=== PATIENT | male | born 1965 | race American Indian/Alaskan Native ===

== ENCOUNTER 2016-07-25 08:39 | Emergency (ER) | payer MEDICAID ==
[2016-07-25 09:07] VITALS: BP 159/123
[2016-07-25 10:06] LABS: Basophils % (Auto) 1.2 % (0.0-1.8); Eosinophils % (Auto) 2.8 % (0.0-4.3); Hematocrit 40.1 % (35.5-45.6); Hemoglobin 13.2 gm/dl (11.8-15.2); Mean Corpuscular HGB Conc 33 % (32-34); Mean Corpuscular Hemoglobin 29 pg (28-32); Mean Corpuscular Volume 89 fl (84-94); Platelet Count 191 K/mm3 (140-440); Red Blood Count 4.52 M/mm3 (3.65-5.03); Red Cell Distribution Width 14.8 % (13.2-15.2); White Blood Count 9.2 K/mm3 (4.5-11.0)
[2016-07-25 10:13] LABS: Anion Gap 16 mmol/L; Blood Urea Nitrogen 9 mg/dL (9-20); Calcium 8.8 mg/dL (8.4-10.2); Carbon Dioxide 22 mmol/L (22-30); Chloride 104.6 mmol/L (98-107); Glucose 102 mg/dL (75-100); Potassium 3.7 mmol/L (3.6-5.0); Sodium 139 mmol/L (137-145)
--- NOTE | 2016-07-26 00:44 | ED Elopement Review ---
ED Pt Elopement review - Results review Lab results: Laboratory Tests 07/25/16 07/25/16 09:34 09:34 WBC 9.2 RBC 4.52 Hgb 13.2 Hct 40.1 MCV 89 MCH 29 MCHC 33 RDW 14.8 Plt Count 191 Lymph % (Auto) 15.8 [place] % (Auto) 7.1 Eos % (Auto) 2.8 Baso % (Auto) 1.2 Lymph # 1.5 [place] # 0.7 Eos # 0.3 Baso # 0.1 Seg Neutrophils % 73.1 H Seg Neutrophils # 6.7 Sodium 139 Potassium 3.7 Chloride 104.6 Carbon Dioxide 22 Anion Gap 16 BUN 9 Creatinine 1.0 Estimated GFR > 60 BUN/Creatinine Ratio 9.00 Glucose 102 H Calcium 8.8 - Call Back decision Pt Call Back Decision: Pt to F/U with PMD (elevated bp, needs treatment and reevaluation)
== END 2016-07-25 09:37 | disposition left against medical advice (07) ==
LOC: ED 08:39
DX: R05 Cough (principal); R51 Headache; R50.9 Fever, unspecified; Z53.21 Procedure and treatment not carried out due to patient leaving prior to being seen by health care provider
CPT/HCPCS: 36415; 80048; 85025; 93005; 93010

== ENCOUNTER 2017-04-26 16:08 | Emergency (ER) | payer MEDICAID ==
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
[2017-04-26 16:53] LABS: Urine Drugs of Abuse Note Disclamer
[2017-04-26 16:58] LABS: Basophils % (Auto) 0.4 % (0.0-1.8); Eosinophils % (Auto) 2.4 % (0.0-4.3); Hematocrit 41.5 % (35.5-45.6); Hemoglobin 13.9 gm/dl (11.8-15.2); Mean Corpuscular HGB Conc 34 % (32-34); Mean Corpuscular Hemoglobin 30 pg (28-32); Mean Corpuscular Volume 91 fl (84-94); Platelet Count 180 K/mm3 (140-440); Red Blood Count 4.59 M/mm3 (3.65-5.03); Red Cell Distribution Width 15.8 % (13.2-15.2); White Blood Count 6.6 K/mm3 (4.5-11.0)
[2017-04-26 17:09] LABS: Anion Gap 16 mmol/L; BUN/Creatinine Ratio 15; Blood Urea Nitrogen 16 mg/dL (9-20); Calcium 8.7 mg/dL (8.4-10.2); Carbon Dioxide 30 mmol/L (22-30); Chloride 103.4 mmol/L (98-107); Glucose 98 mg/dL (75-100); Potassium 4.2 mmol/L (3.6-5.0); Sodium 145 mmol/L (137-145)
[2017-04-26] MEDS ORDERED: TYLENOL PO ONE (17:49)
[2017-04-26] MEDS ORDERED: LASIX IV ONE (17:50)
[2017-04-26] MEDS ORDERED: TYLENOL ONE (17:50)
[2017-04-26 19:09] VITALS: BP 124/97
--- NOTE | 2017-04-26 21:12 | XRay Report ---
FINAL REPORT PROCEDURE: XR CHEST 1V AP TECHNIQUE: Chest radiograph anteroposterior view. CPT 55442 HISTORY: Shortness of breath COMPARISON: No prior studies are available for comparison. FINDINGS: Heart: Magnified due to projection although appears to be mildly enlarged.. Mediastinum/Vessels: Normal. Lungs/Pleural space: Normal. Bony thorax: No acute osseous abnormality. Life support devices: None. IMPRESSION: Cardiomegaly. No acute abnormalities are identified..
== END 2017-04-26 19:08 | disposition home or self-care (01) ==
LOC: ED 16:08
DX: I50.9 Heart failure, unspecified (principal); R06.02 Shortness of breath; I10 Essential (primary) hypertension; I25.2 Old myocardial infarction; K21.9 Gastro-esophageal reflux disease without esophagitis; F17.200 Nicotine dependence, unspecified, uncomplicated
CPT/HCPCS: 36415; 71010; 80048; 80307; 83880; 84484; 85025; 93005; 93010; 96374; 99285; J1940

== ENCOUNTER 2017-05-04 10:48 | Emergency (ER) | payer MEDICAID ==
[2017-05-04 11:08] VITALS: BP 148/117
--- NOTE | 2017-05-04 12:04 | XRay Report ---
PA and lateral chest: SOB. The heart is big. There is mild vascular congestion. No effusion and no infiltrate. The vascular congestion may be slightly worsened seen on prior exam of April 26, 2017. Impression: Probable mild CHF pattern.
[2017-05-04 12:13] LABS: Basophils % (Auto) 0.4 % (0.0-1.8); Eosinophils # (Auto) 0.1 K/mm3 (0.0-0.4); Eosinophils % (Auto) 1.8 % (0.0-4.3); Hematocrit 41.7 % (35.5-45.6); Hemoglobin 13.5 gm/dl (11.8-15.2); Lymphocytes # (Auto) 1.8 K/mm3 (1.2-5.4); Lymphocytes % (Auto) 32.6 % (13.4-35.0); Mean Corpuscular HGB Conc 32 % (32-34); Mean Corpuscular Hemoglobin 29 pg (28-32); Mean Corpuscular Volume 90 fl (84-94); Monocytes # (Auto) 0.7 K/mm3 (0.0-0.8); Monocytes % (Auto) 13.1 % (0.0-7.3); Platelet Count 181 K/mm3 (140-440); Red Blood Count 4.65 M/mm3 (3.65-5.03); Red Cell Distribution Width 15.9 % (13.2-15.2)
[2017-05-04 12:21] LABS: INR 0.87 (0.87-1.13)
[2017-05-04 12:26] LABS: Creatine Kinase MB 3.7 ng/mL (0.0-4.0)
[2017-05-04 12:30] LABS: BUN/Creatinine Ratio 14; Blood Urea Nitrogen 15 mg/dL (9-20); Calcium 8.7 mg/dL (8.4-10.2); Hemolysis Index 17
== END 2017-05-04 14:15 | disposition left against medical advice (07) ==
LOC: ED 10:48
DX: R07.9 Chest pain, unspecified (principal); Z53.21 Procedure and treatment not carried out due to patient leaving prior to being seen by health care provider
CPT/HCPCS: 36415; 71046; 80048; 82550; 82553; 83880; 84484; 85025; 85610; 93005; 93010

== ENCOUNTER 2017-11-16 10:11 | Inpatient (IN) | payer MEDICAID ==
[2017-11-16 11:02] LABS: Basophils # (Auto) 0.1 K/mm3 (0.0-0.1); Basophils % (Auto) 0.8 % (0.0-1.8); Eosinophils % (Auto) 0.2 % (0.0-4.3); Hematocrit 47.8 % (35.5-45.6); Hemoglobin 16.4 gm/dl (11.8-15.2); Lymphocytes # (Auto) 1.9 K/mm3 (1.2-5.4); Lymphocytes % (Auto) 17.9 % (13.4-35.0); Mean Corpuscular HGB Conc 34 % (32-34); Mean Corpuscular Hemoglobin 31 pg (28-32); Mean Corpuscular Volume 91 fl (84-94); Monocytes # (Auto) 0.7 K/mm3 (0.0-0.8); Monocytes % (Auto) 6.1 % (0.0-7.3); Platelet Count 260 K/mm3 (140-440); Red Blood Count 5.25 M/mm3 (3.65-5.03); Red Cell Distribution Width 15.4 % (13.2-15.2)
[2017-11-16 11:19] LABS: Albumin 4.2 g/dL (3.9-5); Calcium 9.2 mg/dL (8.4-10.2)
[2017-11-16] MEDS ORDERED: ZOFRAN ONE (14:59)
[2017-11-16] MEDS ORDERED: ZOFRAN IV ONE (15:03)
[2017-11-16] MEDS ORDERED: NACL 0.9% 1000 ML 1,000 ML IV ONE (15:07)
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
--- NOTE | 2017-11-16 17:39 | Cat Scan Report ---
FINAL REPORT PROCEDURE: CT ABDOMEN PELVIS WO CON TECHNIQUE: Computerized axial tomography of the abdomen and pelvis was performed without intravenous contrast. This study is performed without intravascular contrast material and its sensitivity for abdominal and pelvic pathology, including neoplasms, inflammation, abscess, free fluid, thrombosis, arterial dissection and infarction, is reduced compared with a contrast enhanced study. DLP 1783.26 mGy-cm. HISTORY: Abdominal pain. Nausea/vomiting. COMPARISON: No prior studies are available for comparison. FINDINGS: Visualized lower thorax: Mild cardiomegaly. Liver: Normal size and attenuation. Spleen: Normal size and attenuation. Gallbladder and biliary system: Normal. Pancreas: Normal. Adrenals: Bilateral thickened somewhat nodular appearing adrenal glands. Adreniform shape relatively maintained.. Kidneys: Normal. GI tract: Moderately distended duodenum and jejunum, with gradual tapering to more normal caliber ileum. Normal caliber air-filled appendix. Thick-walled short segment distal transverse colon wall thickening measuring 11 mm (image 69 series 2, image 41 series 602). Descending and more distal colon decompressed. Scattered colonic diverticula. Lymph nodes and mesentery: Normal. Vasculature: Normal. Bladder: Normal. Reproductive organs: Small prostatic calcifications. Peritoneum: No free fluid. Musculoskeletal structures: Slight L4-5 and mild L5-S1 disc bulges. L4-5 ligamentum flavum thickening. Tiny multilevel osteophytes. L5-S1 disc space narrowing and vacuum disc change. Probably benign cystic and/or fibrous lesion in the left iliac wing measuring 2.8 x 1.6 cm. Mild narrowing, osteophytes, and small subchondral cysts about the right hip joint. Other: Small fat filled umbilical hernia. Right greater than left fat filled inguinal hernias. IMPRESSION: Mild cardiomegaly. No CT evidence of renal/ureteral stone or obstruction. Bilateral thickened somewhat nodular appearing adrenal glands with relatively maintained adreniform shape. Consider adrenal hyperplasia. Distended duodenum and jejunum, with gradual tapering. Findings more likely represent an ileus or enteritis rather than obstruction, consider attention on followup radiographs if there is continued clinical concern. Short segment of distal transverse colonic wall thickening and narrowing, likely peristalsis but consider further evaluation including colonoscopy if there is concern for subtle annular colonic lesion. Diverticulosis. Small fat filled umbilical and right greater than left inguinal hernias. Other incidental findings as above.
[2017-11-16 18:31] LABS: Bilirubin,Urine NEG (Negative); Blood,Urine NEG (Negative); Color,Urine Yellow (Yellow); Mucus,Urine FEW /HPF
[2017-11-16] MEDS ORDERED: MORPHINE IV ONE (18:57)
[2017-11-16] MEDS ORDERED: MORPHINE ONE (19:22)
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
[2017-11-16] MEDS ORDERED: SODIUM CHLORIDE FLUSH SYRINGE 10 ML IV PRN (21:04)
[2017-11-16] MEDS ORDERED: PHENERGAN PR PRN (21:04)
[2017-11-16] MEDS ORDERED: ZOFRAN IV PRN (21:04)
[2017-11-16] MEDS ORDERED: REGLAN IV PRN ×2 (21:04→21:24)
[2017-11-16] MEDS ORDERED: TYLENOL PO PRN (21:04)
[2017-11-16] MEDS ORDERED: PEPCID IV SCH (22:00)
[2017-11-16] MEDS: D5NS 1,000 ML IV SCH (23:05)
[2017-11-16] MEDS: SODIUM CHLORIDE FLUSH SYRINGE 10 ML IV SCH (23:11)
[2017-11-16] MEDS: PROTONIX IV SCH (23:11)
[2017-11-16] MEDS: MORPHINE IV PRN (23:12)
[2017-11-17] MEDS: D5NS 1,000 ML IV SCH ×2 (06:25→22:47)
[2017-11-17] MEDS: MORPHINE IV PRN (06:25)
[2017-11-17 07:41] LABS: Basophils % (Auto) 0.3 % (0.0-1.8); Eosinophils % (Auto) 0.3 % (0.0-4.3); Hematocrit 43.6 % (35.5-45.6); Hemoglobin 14.5 gm/dl (11.8-15.2); Lymphocytes # (Auto) 1.5 K/mm3 (1.2-5.4); Lymphocytes % (Auto) 18.4 % (13.4-35.0); Mean Corpuscular HGB Conc 33 % (32-34); Mean Corpuscular Hemoglobin 31 pg (28-32); Mean Corpuscular Volume 92 fl (84-94); Monocytes # (Auto) 0.8 K/mm3 (0.0-0.8); Monocytes % (Auto) 9.1 % (0.0-7.3); Platelet Count 205 K/mm3 (140-440); Red Blood Count 4.75 M/mm3 (3.65-5.03)
[2017-11-17 08:12] LABS: Albumin 3.7 g/dL (3.9-5); Calcium 8.4 mg/dL (8.4-10.2)
--- NOTE | 2017-11-17 09:15 | XRay Report ---
AP ABDOMEN: HISTORY: Ileus. The abdominal gas pattern is unremarkable. No masses or organomegaly is identified and there is no gross evidence of free air or fluid. No significant soft tissue calcifications are noted. IMPRESSION: Unremarkable abdomen.
[2017-11-17] MEDS: SODIUM CHLORIDE FLUSH SYRINGE 10 ML IV SCH ×2 (09:25→22:30)
--- NOTE | 2017-11-17 12:17 | Consultation ---
History of Present Illness Consult date: 11/17/17 Consult reason: arrhythmia History of present illness: 51-year-old man with a long history of dilated nonischemic cardiomyopathy. A cardiac catheterization several years ago at [facility] demonstrated the absence of coronary artery disease. His latest echocardiogram documents a severe left ventricular dysfunction, ejection fraction 15-20%. Stress thallium test showed no ischemia. He has been on medical therapy for systolic left ventricle dysfunction and undergoing ICD evaluation as an outpatient. He presents to the hospital nausea, vomiting, abdominal pain, admitted with acute renal failure and dehydration. Creatinine of 3.9 on presentation. This morning, while on telemetry monitoring patient noted a short burst of non- sustained ventricular tachycardia. Cardiac consultation was requested. Patient remained asymptomatic. There were no unusual shortness of breath, or chest pain. He denies palpitations. 12 lead ECG is a sinus rhythm, LVH with repolarization abnormalities. Medications and Allergies Allergies Allergy/AdvReac Type Severity Reaction Status Date / Time No Known Allergies Allergy Verified 04/26/17 16:12 Home Medications Medication Instructions Recorded Confirmed Last Taken Type ALBUTEROL Inhaler [ProAir HFA 1 - 2 puff IH Q4-6H PRN #1 inha 02/03/17 09/27/17 Unknown Rx Inhaler] Lisinopril [Zestril TAB] 20 mg PO QDAY #30 tablet 02/03/17 09/27/17 09/25/17 Rx Carvedilol [Coreg] 12.5 mg PO BID 09/27/17 09/27/17 09/25/17 History Pantoprazole [Protonix TAB] 40 mg PO QDAY 09/27/17 09/27/17 09/25/17 History Potassium Chloride [K-Dur] 10 meq PO QDAY 09/27/17 09/27/17 09/25/17 History Aspirin [Aspirin TAB] 325 mg PO QDAY #30 tablet 09/28/17 Unknown Rx Spironolactone [Aldactone] 25 mg PO QDAY #30 tablet 09/28/17 Unknown Rx Torsemide [Demadex] 20 mg PO DAILY #30 tablet 09/28/17 Unknown Rx Active Meds: Active Medications Acetaminophen (Tylenol) 650 mg PO Q4H PRN PRN Reason: Pain MILD(1-3)/Fever >100.5/MCFADDEN Dextrose/Sodium Chloride (D5ns) 1,000 mls @ 100 mls/hr IV DIRECT [facility] Last Admin: 11/17/17 06:25 Dose: 100 mls/hr Metoclopramide HCl (Reglan) 5 mg IV Q6H PRN PRN Reason: Nausea And Vomiting Morphine Sulfate (Morphine) 2 mg IV Q4H PRN PRN Reason: Pain, Moderate (4-6) Last Admin: 11/17/17 06:25 Dose: 2 mg Ondansetron HCl (Zofran) 4 mg IV Q8H PRN PRN Reason: Nausea And Vomiting Pantoprazole Sodium (Protonix) 40 mg IV BID [facility] Last Admin: 11/16/17 23:11 Dose: 40 mg Promethazine HCl (Phenergan) 25 mg [place] Q6H PRN PRN Reason: N/V IF NPO AND NO IV ACCESS Sodium Chloride (Sodium Chloride Flush Syringe 10 Ml) 10 ml IV BID [facility] Last Admin: 11/16/17 23:11 Dose: 10 ml Sodium Chloride (Sodium Chloride Flush Syringe 10 Ml) 10 ml IV PRN PRN PRN Reason: LINE FLUSH Physical Examination Vital Signs Temp Pulse Resp BP Pulse Ox 97.6 F 69 16 101/66 95 11/16/17 10:26 11/16/17 10:26 11/16/17 10:26 11/16/17 10:26 11/16/17 10:26 General appearance: no acute distress Cardiac: Positive: Reg Rate and Rhythm Neuro: Positive: Grossly Intact Extremities: Absent: edema Results 11/17/17 07:06 11/17/17 07:06 Cardiac Enzymes 11/17/17 Range/Units 07:06 AST 21 (5-40) units/L CBC 11/17/17 Range/Units 07:06 WBC 8.4 (4.5-11.0) K/mm3 RBC 4.75 (3.65-5.03) M/mm3 Hgb 14.5 (11.8-15.2) gm/dl Hct 43.6 (35.5-45.6) % Plt Count 205 (140-440) K/mm3 Lymph # 1.5 (1.2-5.4) K/mm3 [place] # 0.8 (0.0-0.8) K/mm3 Eos # 0.0 (0.0-0.4) K/mm3 Baso # 0.0 (0.0-0.1) K/mm3 Comprehensive Metabolic Panel 11/17/17 Range/Units 07:06 Sodium 142 (137-145) mmol/L Potassium 3.8 (3.6-5.0) mmol/L Chloride 101.9 (98-107) mmol/L Carbon Dioxide 26 (22-30) mmol/L BUN 30 H (9-20) mg/dL Creatinine 2.5 H (0.8-1.5) mg/dL Glucose 109 H (75-100) mg/dL Calcium 8.4 (8.4-10.2) mg/dL AST 21 (5-40) units/L ALT 17 (7-56) units/L Alkaline Phosphatase 65 (35-129) units/L Total Protein 6.5 (6.3-8.2) g/dL Albumin 3.7 L (3.9-5) g/dL Assessment and Plan Acute renal failure Dehydration Dilated nonischemic cardiomyopathy EF 10-15% on echo at [facility] 12/2016 fixed inferior wall defect on MPI at [facility] 12/2016. This is unchanged when compared to prior study. Recommendations: Continue medical therapy for his dilated nonischemic cardiomyopathy. Sodium/fluid restriction. As an outpatient, patient is being considered for elective ICD therapy.
--- NOTE | 2017-11-17 14:45 | Consultation ---
History of Present Illness - Reason for Consult Consult date: 11/17/17 acute renal failure - History of Present Illness Pleasant middle aged male with history pertinent for HTN, CHF, CAD s/p PCI, and HLD, who presented to the hospital secondary to symptoms of reocurent nasuea, vomiting and abdominal discomfort compounded by decreased PO intake. These symptoms had occured for the past 5 days before patient came to the ER for further evaluation. His father had recently . In this setting of decreased PO intake his serum creatinine level was elevated at 3.7 from a baseline of 1.2-1.4. His serum creatinine has already shown improvement down to 2.5 after fluid hydration. Nephrology was consulted for acute renal injury. He denies nay symptoms of pain with urination, hematuria or decreased urination. He states that also this week he had been working outside one day prior to arrival to the ER. During the time that he was working he managed to only drink ~16 floz of gatorade. He apparently was working outside in the heat for ~6 hrs. He states the he was never aware of an elevated creatinine in the past and that he has never been evaluated by nephrology. He is also being managed cardiology along with his PCP as an outpatient. Today he states that he is feeling better and he has been started on a clear liquid diet upon the time of examination. Past History Past Medical History: CAD, hypertension, hyperlipidemia Past Surgical History: Other (eye surgery ) Social history: no significant social history Family history: hypertension Medications and Allergies Allergies Allergy/AdvReac Type Severity Reaction Status Date / Time No Known Allergies Allergy Verified 04/26/17 16:12 Home Medications Medication Instructions Recorded Confirmed Last Taken Type ALBUTEROL Inhaler [ProAir HFA 1 - 2 puff IH Q4-6H PRN #1 inha 02/03/17 09/27/17 Unknown Rx Inhaler] Lisinopril [Zestril TAB] 20 mg PO QDAY #30 tablet 02/03/17 09/27/17 09/25/17 Rx Carvedilol [Coreg] 12.5 mg PO BID 09/27/17 09/27/17 09/25/17 History Pantoprazole [Protonix TAB] 40 mg PO QDAY 09/27/17 09/27/17 09/25/17 History Potassium Chloride [K-Dur] 10 meq PO QDAY 09/27/17 09/27/17 09/25/17 History Aspirin [Aspirin TAB] 325 mg PO QDAY #30 tablet 09/28/17 Unknown Rx Spironolactone [Aldactone] 25 mg PO QDAY #30 tablet 09/28/17 Unknown Rx Torsemide [Demadex] 20 mg PO DAILY #30 tablet 09/28/17 Unknown Rx Active Meds: Active Medications Acetaminophen (Tylenol) 650 mg PO Q4H PRN PRN Reason: Pain MILD(1-3)/Fever >100.5/MCFADDEN Carvedilol (Coreg) 6.25 mg PO BID [facility] Dextrose/Sodium Chloride (D5ns) 1,000 mls @ 100 mls/hr IV DIRECT [facility] Last Admin: 11/17/17 06:25 Dose: 100 mls/hr Metoclopramide HCl (Reglan) 5 mg IV Q6H PRN PRN Reason: Nausea And Vomiting Morphine Sulfate (Morphine) 2 mg IV Q4H PRN PRN Reason: Pain, Moderate (4-6) Last Admin: 11/17/17 06:25 Dose: 2 mg Ondansetron HCl (Zofran) 4 mg IV Q8H PRN PRN Reason: Nausea And Vomiting Pantoprazole Sodium (Protonix) 40 mg IV BID [facility] Stop: 11/17/17 23:59 Last Admin: 11/16/17 23:11 Dose: 40 mg Pantoprazole Sodium (Protonix) 40 mg PO BID [facility] Promethazine HCl (Phenergan) 25 mg [place] Q6H PRN PRN Reason: N/V IF NPO AND NO IV ACCESS Sodium Chloride (Sodium Chloride Flush Syringe 10 Ml) 10 ml IV BID [facility] Last Admin: 11/16/17 23:11 Dose: 10 ml Sodium Chloride (Sodium Chloride Flush Syringe 10 Ml) 10 ml IV PRN PRN PRN Reason: LINE FLUSH Review of Systems All systems: negative Constitutional: fatigue, weakness, poor appetite Gastrointestinal: abdominal pain, nausea, vomiting, excessive gas, dyspepsia/ bloating, early satiety Exam - Vital Signs Vital signs: Vital Signs Temp Pulse Resp BP Pulse Ox 97.6 F 69 16 101/66 95 11/16/17 10:26 11/16/17 10:26 11/16/17 10:26 11/16/17 10:26 11/16/17 10:26 - General Appearance General appearance: well-developed, well-nourished, appears stated age EENT: PERRL, mucous membranes moist Neck: Present: neck supple, trachea midline Respiratory: Clear to Ascultation Heart: regular, normal heart rate, S1S2, no murmurs Gastrointestinal: Present: normal, normoactive bowel sounds Integumentary: no rash, warm and dry Neurologic: no focal deficit, no asterixis, alert and oriented x3 Musculoskeletal: Present: deferred Psychiatric: mood/affect appropriate Results - Lab Results 11/17/17 07:06 11/17/17 07:06 Most recent lab results Calcium 8.4 mg/dL (8.4-10.2) 11/17/17 07:06 Assessment and Plan - Patient Problems (1) Acute on chronic renal failure Current Visit: Yes Status: Acute Plan to address problem: His renal function is improving with fluid hydration. Encourage PO intake as tolerated. Avoid nephrotoxins. Would continue to hold ACei and monitor blood pressure closely. Once he is tolerating PO intake, would favor to discontinue his IV fluids given his cardiac history and h/o CHF. (2) Hypertension with renal disease Current Visit: Yes Status: Acute Plan to address problem: Patient restarted on coreg with ACEi being held. His current blood pressures are stable at present time. Will continue to monitor. (3) CHF (congestive heart failure) Current Visit: No Status: Chronic Qualifiers: Qualified Code(s): I50.9 - Heart failure, unspecified Plan to address problem: Given his history of CHF, please avoid standing IVF once he is able to tolerate PO intake. Patient should already be on a low sodium diet. (4) Acute pancreatitis Current Visit: Yes Status: Acute Qualifiers: Acute pancreatitis complication: unspecified Plan to address problem: Patient is now on clear liquids and agree with advancing diet as tolerated. Would encourage more PO intake and avoid standing IVF given history of CHF.
[2017-11-17] MEDS: PROTONIX IV SCH ×2 (15:00→22:39)
[2017-11-17] MEDS: COREG PO SCH ×2 (16:00→22:38)
--- NOTE | 2017-11-17 16:17 | Progress Note ---
Assessment and Plan Assessment and plan: 52-year-old -[place] male with past medical history significant for cardiomyopathy with EF of 20%, cocaine abuse, hypertension presented to the emergency department complaining of recurrent nausea and vomiting. At presentation patient was dehydrated and creatinine was 3.7. CT abdomen and pelvis showed ileus, that resolved this morning. Acute renal failure, likely due to dehydration - Patient is on IV fluids - Nephrology is following - Creatinine is from 3.7-2.5 - We will monitor closely Nausea and vomiting secondary to ileus - Abdominal x-ray showed ileus resolved - Nausea and vomiting subsided - Patient stated advanced to a full cardiac diet Cardiomyopathy ejection fraction of 20 percent - Patient refused ICD previously - Patient had nonsustained V. tach and cardiology evaluated him and recommended no further cardiac workup - No shortness of breath, will stop the fluid if the patient has any signs of fluid overload Hypertension - Held ACEI because of acute renal failure and continue with Coreg - BP is well-controlled DVT prophylaxis - Heparin GI prophylaxis - On Protonix Disposition - Possible discharge tomorrow if ARF is progressively improving. History Interval history: Patient was seen and evaluated this morning, nausea and vomiting subsided. Patient's complaining generalized weakness. No chest pain. Hospitalist Physical - Physical exam Narrative exam: Not in cardiopulmonary distress. The patient appeared well nourished and normally developed. Vital signs as documented. Head exam is unremarkable. No scleral icterus . Neck is without jugular venous distension, thyromegaly, or carotid bruits. Lungs are clear to auscultation. Cardiac exam reveals regular rate and Rhythm. First and second heart sounds normal. No murmurs, rubs or gallops. Abdominal exam reveals normal bowel sounds, no masses, no organomegaly and no aortic enlargement. Extremities are nonedematous and both femoral and pedal pulses are normal. 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 No focal weakness. - Constitutional Vitals: Temp Pulse Resp BP Pulse Ox 99.5 F 76 20 130/99 99 11/17/17 13:11 11/17/17 13:11 11/17/17 13:11 11/17/17 13:11 11/17/17 13:11 General appearance: Present: no acute distress Results - Labs CBC & Chem 7: 11/17/17 07:06 11/17/17 07:06 Labs: Laboratory Last Values WBC 8.4 K/mm3 (4.5-11.0) 11/17/17 07:06 RBC 4.75 M/mm3 (3.65-5.03) 11/17/17 07:06 Hgb 14.5 gm/dl (11.8-15.2) 11/17/17 07:06 Hct 43.6 % (35.5-45.6) 11/17/17 07:06 MCV 92 fl (84-94) 11/17/17 07:06 MCH 31 pg (28-32) 11/17/17 07:06 MCHC 33 % (32-34) 11/17/17 07:06 RDW 15.0 % (13.2-15.2) 11/17/17 07:06 Plt Count 205 K/mm3 (140-440) 11/17/17 07:06 Lymph % (Auto) 18.4 % (13.4-35.0) 11/17/17 07:06 [place] % (Auto) 9.1 % (0.0-7.3) H 11/17/17 07:06 Eos % (Auto) 0.3 % (0.0-4.3) 11/17/17 07:06 Baso % (Auto) 0.3 % (0.0-1.8) 11/17/17 07:06 Lymph # 1.5 K/mm3 (1.2-5.4) 11/17/17 07:06 [place] # 0.8 K/mm3 (0.0-0.8) 11/17/17 07:06 Eos # 0.0 K/mm3 (0.0-0.4) 11/17/17 07:06 Baso # 0.0 K/mm3 (0.0-0.1) 11/17/17 07:06 Seg Neutrophils % 71.9 % (40.0-70.0) H 11/17/17 07:06 Seg Neutrophils # 6.0 K/mm3 (1.8-7.7) 11/17/17 07:06 Sodium 142 mmol/L (137-145) 11/17/17 07:06 Potassium 3.8 mmol/L (3.6-5.0) 11/17/17 07:06 Chloride 101.9 mmol/L (98-107) 11/17/17 07:06 Carbon Dioxide 26 mmol/L (22-30) 11/17/17 07:06 Anion Gap 18 mmol/L 11/17/17 07:06 BUN 30 mg/dL (9-20) H 11/17/17 07:06 Creatinine 2.5 mg/dL (0.8-1.5) H 11/17/17 07:06 Estimated GFR 33 ml/min 11/17/17 07:06 BUN/Creatinine Ratio 12 % 11/17/17 07:06 Glucose 109 mg/dL (75-100) H 11/17/17 07:06 Hemoglobin A1c 6.3 % (4-6) H 11/16/17 21:24 Calcium 8.4 mg/dL (8.4-10.2) 11/17/17 07:06 Magnesium 2.00 mg/dL (1.7-2.3) 11/17/17 15:28 Total Bilirubin 0.90 mg/dL (0.1-1.2) 11/17/17 07:06 AST 21 units/L (5-40) 11/17/17 07:06 ALT 17 units/L (7-56) 11/17/17 07:06 Alkaline Phosphatase 65 units/L (35-129) 11/17/17 07:06 Troponin T 0.028 ng/mL (0.00-0.029) 11/16/17 15:31 Total Protein 6.5 g/dL (6.3-8.2) 11/17/17 07:06 Albumin 3.7 g/dL (3.9-5) L 11/17/17 07:06 Albumin/Globulin Ratio 1.3 % 11/17/17 07:06 Amylase 252 units/L (27-131) H 11/17/17 07:06 Lipase 94 units/L (13-60) H 11/16/17 15:31 Urine Color Yellow (Yellow) 11/16/17 14:35 Urine Turbidity Clear (Clear) 11/16/17 14:35 Urine pH 5.0 (5.0-7.0) 11/16/17 14:35 Ur Specific [place] 1.025 (1.003-1.030) 11/16/17 14:35 Urine Protein 30 mg/dl mg/dL (Negative) 11/16/17 14:35 Urine Glucose (UA) 50 mg/dL (Negative) 11/16/17 14:35 Urine Ketones Tr mg/dL (Negative) 11/16/17 14:35 Urine Blood Neg (Negative) 11/16/17 14:35 Urine Nitrite Neg (Negative) 11/16/17 14:35 Urine Bilirubin Neg (Negative) 11/16/17 14:35 Urine Urobilinogen 2.0 mg/dL (<2.0) 11/16/17 14:35 Ur Leukocyte Esterase Neg (Negative) 11/16/17 14:35 Urine WBC (Auto) 3.0 /HPF (0.0-6.0) 11/16/17 14:35 Urine RBC (Auto) 6.0 /HPF (0.0-6.0) 11/16/17 14:35 Urine Mucus Few /HPF 11/16/17 14:35
[2017-11-17] MEDS: HEPARIN SUB-Q SCH (22:41)
[2017-11-18 08:46] LABS: Calcium 8.4 mg/dL (8.4-10.2)
[2017-11-18] MEDS: MORPHINE IV PRN (08:46)
[2017-11-18] MEDS: D5NS 1,000 ML IV SCH (08:46)
[2017-11-18] MEDS ORDERED: PROTONIX PO SCH (10:00)
--- NOTE | 2017-11-18 10:14 | Progress Note ---
Assessment and Plan - Patient Problems (1) Acute gastroenteritis Current Visit: Yes Status: Acute (2) Acute kidney injury Current Visit: Yes Status: Acute (3) Acute pancreatitis Current Visit: Yes Status: Acute Qualifiers: Acute pancreatitis complication: unspecified (4) Dehydration Current Visit: Yes Status: Acute (5) Hypertension with renal disease Current Visit: Yes Status: Acute Subjective Date of service: 11/18/17 Interval history: FEELS BETTER,,NO CV' Objective Vital Signs Temp Pulse Resp BP Pulse Ox 11/18/17 06:05 82 18 95 11/17/17 22:52 98.7 F 82 18 130/91 93 11/17/17 22:38 84 137/87 11/17/17 17:20 98.7 F 69 20 133/77 96 11/17/17 13:11 99.5 F 76 20 130/99 99 - Physical Examination HEENT: Positive: PERRL Neck: Positive: neck supple, trachea midline Cardiac: Positive: Reg Rate and Rhythm Lungs: Positive: clear to auscultation Neuro: Positive: Grossly Intact Abdomen: Positive: Soft Extremities: Absent: edema - Labs and Meds Comprehensive Metabolic Panel 11/18/17 Range/Units 07:27 Sodium 143 (137-145) mmol/L Potassium 3.4 L (3.6-5.0) mmol/L Chloride 104.1 (98-107) mmol/L Carbon Dioxide 26 (22-30) mmol/L BUN 17 (9-20) mg/dL Creatinine 1.8 H (0.8-1.5) mg/dL Glucose 104 H (75-100) mg/dL Calcium 8.4 (8.4-10.2) mg/dL - Imaging and Cardiology EKG: report reviewed (sinus rhythm supraventricular bigeminy left anterior fascicular block heart rate of 96)
[2017-11-18] MEDS: HEPARIN SUB-Q SCH (10:39)
[2017-11-18] MEDS: COREG PO SCH (10:40)
[2017-11-18] MEDS: SODIUM CHLORIDE FLUSH SYRINGE 10 ML IV SCH (10:41)
--- NOTE | 2017-11-18 10:45 | Discharge Summary ---
Providers - Providers Date of Admission: 11/16/17 18:15 Attending physician: CLARISA HENRIQUEZ MD 11/16/17 21:40 Consult to Physician [CONS] Routine Comment: Consulting Provider: NELLY CM Physician Instructions: Reason For Exam: BROWN 11/17/17 08:13 Consult to Cardiology [CONS] Stat Consulting Provider: AVINASH MATAMOROS Reason For Exam: PRevious HX of [place], Wide Complex V-tach Primary care physician: WHEEL BLOCKER Hospitalization Reason for admission: Ileus, Acute renal failure, Chronic systolic CHF Condition: Stable Pertinent studies: Echo EF 20% CT abdomen and Pelvis ; ileus Hospital course: 52-year-old -[place] male with past medical history significant for cardiomyopathy with EF of 20%, cocaine abuse, hypertension presented to the emergency department complaining of recurrent nausea and vomiting. At presentation patient was dehydrated and creatinine was 3.7. CT abdomen and pelvis showed ileus, that resolved this morning. Acute renal failure, likely due to dehydration Admission creatinine was 3.7 and after rehydration his creatinine level was 1.8. Patient advised to increase fluid intake Nausea and vomiting secondary to ileus - Abdominal x-ray showed ileus resolved - Nausea and vomiting subsided - Patient tolerated full cardiac diet Cardiomyopathy ejection fraction of 20 percent - Patient refused ICD previously - Patient had nonsustained V. tach and cardiology evaluated him and recommended no further cardiac workup Hypertension - Held ACEI because of acute renal failure and continue with Coreg, I have added hydralazine last discharge - BP is well-controlled Patient was hemodynamically stable at the time of discharge. Patient discharged home. Disposition: - TO HOME OR SELFCARE Time spent for discharge: 31 minutes - Discharge Diagnoses (1) Chronic systolic congestive heart failure Status: Chronic (2) Acute gastroenteritis Status: Acute (3) Acute on chronic renal failure Status: Acute (4) CHF (congestive heart failure) Status: Chronic Core Measure Documentation - Palliative Care Palliative Care/ Comfort Measures: Not Applicable - Core Measures Any of the following diagnoses?: none - Heart Failure Discharge Requirements JADEN/ARB for LVSD if EF <40%: No Reason for no JADEN/ARB: Renal impairment Beta aminta at discharge: Yes Exam - Physical Exam Narrative exam: Not in cardiopulmonary distress. The patient appeared well nourished and normally developed. Vital signs as documented. Head exam is unremarkable. No scleral icterus . Neck is without jugular venous distension, thyromegaly, or carotid bruits. Lungs are clear to auscultation. Cardiac exam reveals regular rate and Rhythm. First and second heart sounds normal. No murmurs, rubs or gallops. Abdominal exam reveals normal bowel sounds, no masses, no organomegaly and no aortic enlargement. Extremities are nonedematous and both femoral and pedal pulses are normal. 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 No focal weakness. - Constitutional Vitals: Temp Pulse Resp BP Pulse Ox 98.7 F 82 18 130/91 95 11/17/17 22:52 11/18/17 06:05 11/18/17 06:05 11/17/17 22:52 11/18/17 06:05 Plan Activity: no restrictions Weight Bearing Status: Full Weight Bearing Diet: low cholesterol, low salt Additional Instructions: Follow at [facility] in 1-2 weeks Follow up with: PRIMARY CAREMD [Primary Care Provider] - 3-5 Days Prescriptions: Hydralazine HCl 50 mg PO BID #60 tablet
[2017-11-18 12:33] VITALS: BP 119/90
--- NOTE | 2017-11-18 14:23 | Progress Note ---
Assessment and Plan - Patient Problems (1) Acute on chronic renal failure Current Visit: Yes Status: Acute Plan to address problem: Renal function has improved Will need to follow up labs with his PCP to ensure that his creatinine continues to improve back to his baseline. Patient stable for discharge from renal standpoint. Should follow up with nephrology in the am. (2) Hypertension with renal disease Current Visit: Yes Status: Acute Plan to address problem: His blood pressure is stable at this point. Needs to follow with PCP and cardiology. Believe that he would benefit from ACEi once his renal function has further stabilized, given his ECHO findings of low EF. No urgency to restart ACEi now and this can be restarted in the outpatient setting. (3) CHF (congestive heart failure) Current Visit: No Status: Chronic Qualifiers: Qualified Code(s): I50.9 - Heart failure, unspecified Plan to address problem: He needs to be careful about sodium and fluid intake. Counseled him on the importance of daily weight and to look for sings of edema. Needs to follow with cardiology. ECHO findings noted. (4) Acute pancreatitis Current Visit: Yes Status: Acute Qualifiers: Acute pancreatitis complication: unspecified Plan to address problem: Symptoms resolved. Tolerating PO intake. Subjective Date of service: 11/18/17 Interval history: No acute issues. He is stable and getting ready for discharge. labs noted and improvement in renal function noted. Objective - Vital Signs Vital signs: Vital Signs - 12hr 11/18/17 11/18/17 11/18/17 06:05 10:36 10:40 Temperature Pulse Rate 82 76 Respiratory 18 18 Rate Blood Pressure 128/94 128/94 O2 Sat by Pulse 95 97 Oximetry 11/18/17 12:13 Temperature 98.5 F Pulse Rate 65 Respiratory 20 Rate Blood Pressure 119/90 O2 Sat by Pulse 95 Oximetry - Lab 11/17/17 07:06 11/18/17 07:27 Most recent lab results Calcium 8.4 mg/dL (8.4-10.2) 11/18/17 07:27 Magnesium 2.00 mg/dL (1.7-2.3) 11/17/17 15:28
== END 2017-11-18 14:30 | disposition home or self-care (01) | DRG 682 ==
LOC: ED 10:11 → 3A 18:15
PROVIDERS: ADMIT Internal Medicine; ATTEND Internal Medicine
DX: N17.9 Acute kidney failure, unspecified (principal); K85.90 Acute pancreatitis without necrosis or infection, unspecified; E86.0 Dehydration; I50.22 Chronic systolic (congestive) heart failure; K56.7 Ileus, unspecified; I13.0 Hypertensive heart and chronic kidney disease with heart failure and stage 1 through stage 4 chronic kidney disease, or unspecified chronic kidney disease; I42.0 Dilated cardiomyopathy; I47.2 Ventricular tachycardia; K52.9 Noninfective gastroenteritis and colitis, unspecified; N18.9 Chronic kidney disease, unspecified; J44.9 Chronic obstructive pulmonary disease, unspecified; K21.9 Gastro-esophageal reflux disease without esophagitis; I25.2 Old myocardial infarction; Z79.82 Long term (current) use of aspirin; Z82.49 Family history of ischemic heart disease and other diseases of the circulatory system; F14.10 Cocaine abuse, uncomplicated
CPT/HCPCS: 36415; 74018; 74176; 80048; 80053; 81001; 82150; 83036; 83690; 83735; 84484; 85025; 93005; 93010; 93306; 99406; C9113; J1644; J2270; J2405; J7030; J7042

== ENCOUNTER 2018-02-04 13:17 | Inpatient (IN) | payer MEDICAID ==
[2018-02-04 13:48] LABS: Basophils # (Auto) 0.1 K/mm3 (0.0-0.1); Eosinophils # (Auto) 0.2 K/mm3 (0.0-0.4); Eosinophils % (Auto) 3.3 % (0.0-4.3); Hematocrit 38.2 % (35.5-45.6); Hemoglobin 12.7 gm/dl (11.8-15.2); Lymphocytes # (Auto) 1.9 K/mm3 (1.2-5.4); Lymphocytes % (Auto) 29.9 % (13.4-35.0); Mean Corpuscular HGB Conc 33 % (32-34); Mean Corpuscular Hemoglobin 31 pg (28-32); Mean Corpuscular Volume 94 fl (84-94); Monocytes # (Auto) 0.5 K/mm3 (0.0-0.8); Monocytes % (Auto) 7.9 % (0.0-7.3); Platelet Count 213 K/mm3 (140-440); Red Blood Count 4.08 M/mm3 (3.65-5.03)
[2018-02-04] MEDS ORDERED: NITRO-BID 2% TP ONE (13:57)
[2018-02-04 14:07] LABS: Calcium 8.5 mg/dL (8.4-10.2)
[2018-02-04 14:16] LABS: Bilirubin,Urine NEG (Negative); Blood,Urine NEG (Negative); Color,Urine Colorless (Yellow); Protein,Urine <15 mg/dL mg/dL (Negative); RBC,Urine < 1.0 /HPF (0.0-6.0); Urobilinogen,Urine < 2.0 mg/dL (<2.0); WBC,Urine < 1.0 /HPF (0.0-6.0)
[2018-02-04 14:26] LABS: INR 0.87 (0.87-1.13)
[2018-02-04 14:27] LABS: Partial Thromboplastin Time 26.6 Sec. (24.2-36.6)
[2018-02-04 14:27] LABS: Amphetamine Screen,Urine PRESUMPTIVE NEGATIVE; Benzodiazepines Screen,Urine PRESUMPTIVE NEGATIVE; Cannabinoid Screen,Urine PRESUMPTIVE NEGATIVE; Methadone Screen,Urine PRESUMPTIVE NEGATIVE; Opiate Screen,Urine PRESUMPTIVE NEGATIVE
[2018-02-04 14:35] LABS: Alanine Aminotransferase 27 units/L (7-56); Albumin 3.9 g/dL (3.9-5)
[2018-02-04 14:37] LABS: Bilirubin,Direct < 0.2 mg/dL (0-0.2)
[2018-02-04] MEDS ORDERED: LASIX IV ONE (14:37)
[2018-02-04 14:56] LABS: Cocaine Screen,Urine PRESUMPTIVE POSITIVE
--- NOTE | 2018-02-04 15:12 | XRay Report ---
FINAL REPORT PROCEDURE: XR CHEST 1V AP TECHNIQUE: Chest radiograph anteroposterior view. CPT 60757 HISTORY: EMELINA. Short of breath. COMPARISON: Prior chest x-ray 09/27/2017 FINDINGS: Heart: Cardiomegaly is unchanged.. Mediastinum/Vessels: Normal. Lungs/Pleural space: Clear. No focal infiltrates masses effusions or pneumothorax are visualized.. Bony thorax: No acute osseous abnormality. Life support devices: None. IMPRESSION: Stable cardiomegaly. No acute abnormality is seen..
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
[2018-02-04] MEDS ORDERED: BABY ASPIRIN PO ONE (15:28)
--- NOTE | 2018-02-04 16:13 | History and Physical Report ---
History of Present Illness Chief complaint: Im bloated, and i cant breathe History of present illness: 52 YO Male with Obesity, CHF, HTN, SD, GERD, Nicotine Dependence presents to ED for evaluation. Pt states that he has experienced generalized edema and shortness of breath over the past 4 days with worsening symptoms over the past 2 days. Pt acknowledges Orthopnea/PND, and decreased exercise tolerance. as well as dietary and medication noncompliance. Pt denies fever, chills, CP, Palpitations, NVD, Syncope,Trauma, BRBPR, Productive cough, skin rash, hemoptysis, or recent ill contacts. Pt seen and evaluated in ED and found to have symptoms consistent with CHF Decompensation, ARF, as well as acute respiratory failure. Pt admitted to telemetry, and initiated on CHF protocol. Cardiology team consulted in ED. Past History Past Medical History: acute SD, GERD, heart failure, hypertension Past Surgical History: Other (Eye surgery) Social history: , lives with family, smoking Family history: diabetes, hypertension Medications and Allergies Allergies Allergy/AdvReac Type Severity Reaction Status Date / Time No Known Allergies Allergy Verified 04/26/17 16:12 Home Medications Medication Instructions Recorded Confirmed Last Taken Type ALBUTEROL Inhaler (OR & NICU) 1 - 2 puff IH Q4-6H PRN #1 inha 02/03/17 09/27/17 Unknown Rx [ProAir HFA Inhaler] Carvedilol [Coreg] 12.5 mg PO BID 09/27/17 09/27/17 09/25/17 History Pantoprazole [Protonix TAB] 40 mg PO QDAY 09/27/17 09/27/17 09/25/17 History Potassium Chloride [K-Dur] 10 meq PO QDAY 09/27/17 09/27/17 09/25/17 History Aspirin [Aspirin TAB] 325 mg PO QDAY #30 tablet 09/28/17 Unknown Rx Spironolactone [Aldactone] 25 mg PO QDAY #30 tablet 09/28/17 Unknown Rx Torsemide [Demadex] 20 mg PO DAILY #30 tablet 09/28/17 Unknown Rx Hydralazine HCl 50 mg PO BID #60 tablet 11/18/17 Unknown Rx Review of Systems Constitutional: weight gain, no weight loss, no fever, no chills Ears, nose, mouth and throat: no ear pain, no ear discharge, no tinnitis, no decreased hearing, no nose pain Cardiovascular: orthopnea, shortness of breath, paroxysmal nocturnal dyspnea, leg edema, decreased exercise tolerance, no chest pain, no palpitations, no rapid/irregular heart beat, no edema, no syncope Respiratory: no cough, no cough with sputum, no excessive sputum, no hemoptysis Gastrointestinal: no nausea, no vomiting, no diarrhea, no constipation Genitourinary Male: no hematuria, no flank pain, no discharge, no urinary frequency, no urinary hesitancy Rectal: no pain, no incontinence, no bleeding Musculoskeletal: no neck stiffness, no neck pain, no shooting arm pain Integumentary: no rash, no pruritis, no redness, no wounds, no jaundice Neurological: no transient paralysis, no paralysis, no weakness, no parathesias , no numbness, no tingling Psychiatric: no anxiety, no memory loss, no change in sleep habits, no sleep disturbances, no insomnia, no hypersomnia, no change in appetite Endocrine: no cold intolerance, no heat intolerance, no polyphagia, no excessive thirst, no polydipsia, no polyuria, no nocturia Hematologic/Lymphatic: no easy bruising, no easy bleeding, no lymphadenopathy, no lymphedema Allergic/Immunologic: no urticaria, no allergic rhinitis, no wheezing, no persistent infections, no anaphylaxis, no angioedema Exam - Constitutional Vitals: Temp Pulse Resp BP Pulse Ox 98.3 F 87 22 140/106 96 02/04/18 13:24 02/04/18 14:10 02/04/18 13:52 02/04/18 14:10 02/04/18 13:52 General appearance: Present: mild distress, obese - EENT Eyes: Present: PERRL ENT: hearing intact, clear oral mucosa - Neck Neck: Present: supple, normal ROM - Respiratory Respiratory effort: normal Respiratory: bilateral: diminished, rhonchi - Cardiovascular Heart Sounds: Present: S1 & S2. Absent: rub, click - Extremities Extremities: pulses symmetrical, No edema Extremity abnormal: edema Peripheral Pulses: within normal limits - Abdominal General gastrointestinal: Present: soft, non-tender, non-distended, normal bowel sounds Male genitourinary: Present: normal - Integumentary Integumentary: Present: clear, warm, dry - Musculoskeletal Musculoskeletal: gait normal, strength equal bilaterally - Psychiatric Psychiatric: appropriate mood/affect, intact judgment & insight - Neurologic Neurologic: CNII-XII intact, moves all extremities Results - Labs CBC & Chem 7: 02/04/18 13:31 02/04/18 13:31 Labs: Abnormal lab results 02/04/18 02/04/18 02/04/18 Range/Units 13:31 13:31 13:31 RDW 16.0 H (13.2-15.2) % Leslie % (Auto) 7.9 H (0.0-7.3) % Sodium 146 H (137-145) mmol/L Creatinine 1.6 H (0.8-1.5) mg/dL Glucose 104 H (75-100) mg/dL NT-Pro-B Natriuret Pep 3140 H (0-900) pg/mL Assessment and Plan - Patient Problems (1) CHF (congestive heart failure) Current Visit: Yes Status: Chronic Qualifiers: Heart failure type: systolic Heart failure chronicity: acute on chronic Qualified Code(s): I50.23 - Acute on chronic systolic (congestive) heart failure Plan to address problem: Admit to telemetry, strict I/O, diuresis, monitor uop q shift, restart home medication, Pt counseled regarding noncompliance, daily weight, bnp, d dimer, chest x ray, recent echo 11/15 reviewed. (2) Respiratory failure Current Visit: Yes Status: Acute (3) Nicotine dependence unspecified, with withdrawal Current Visit: Yes Status: Acute (4) Acute on chronic renal failure Current Visit: No Status: Acute (5) DVT prophylaxis Current Visit: No Status: Acute
[2018-02-04] MEDS ORDERED: PROVENTIL IH PRN (16:14)
[2018-02-04] MEDS ORDERED: SODIUM CHLORIDE FLUSH SYRINGE 10 ML IV PRN (16:14)
[2018-02-04] MEDS ORDERED: ZOFRAN IV PRN (16:14)
[2018-02-04] MEDS ORDERED: TYLENOL PO PRN (16:14)
[2018-02-04] MEDS ORDERED: NON-FORMULARY (Torsemide [Demadex] 20 MG) PO SCH (16:15)
[2018-02-04] MEDS: ALDACTONE PO SCH (18:11)
[2018-02-04 18:13] LABS: Creatine Kinase MB 4.4 ng/mL (0.0-4.0)
[2018-02-04] MEDS: APRESOLINE PO SCH (21:24)
[2018-02-04] MEDS: COREG PO SCH (21:24)
[2018-02-04] MEDS: SODIUM CHLORIDE FLUSH SYRINGE 10 ML IV SCH (21:30)
[2018-02-04] MEDS ORDERED: NON-FORMULARY (Hydralazine Hcl [Hydralazine Hcl] 50 MG) PO SCH (22:00)
[2018-02-04 22:10] LABS: Creatinine,Urine 70.4 mg/dL (0.1-20.0)
[2018-02-05] MEDS: ALDACTONE PO SCH (09:51)
[2018-02-05] MEDS: PROTONIX PO SCH (09:51)
[2018-02-05] MEDS: ASPIRIN PO SCH (09:51)
[2018-02-05] MEDS: APRESOLINE PO SCH ×2 (09:52→21:53)
[2018-02-05] MEDS: COREG PO SCH ×2 (09:52→21:53)
[2018-02-05] MEDS: K-DUR PO SCH (09:53)
[2018-02-05] MEDS: SODIUM CHLORIDE FLUSH SYRINGE 10 ML IV SCH ×2 (09:54→21:53)
--- NOTE | 2018-02-05 10:28 | Progress Note ---
Assessment and Plan Assessment and plan: Acute systolic heart failure exacerbation. Patient with echocardiogram in October 2017 that revealed EF of 15-20%. Consult cardiology for further evaluation. Continue afterload reduction, beta aminta and diuresis. Acute hypoxemic respiratory failure. Etiology secondary to above. Continue O2 for supportive care. Nonischemic Dilated cardiomyopathy. As above. Recent MPI revealed large fixed inferior wall defect unchanged from previous. Patient with normal coronaries by cath 2 years ago at [facility]. Patient reportedly declined a LifeVest and AICD therapy previously. Patent foramen ovale Hypertension. Continue anti-hypertensive medications. Medical noncompliance. Patient reports being out of town working in [place] for the [employer] and states that he may have gotten his medications mixed up. Tobacco dependence. Patient will be counseled on smoking cessation. Acute on CKD. Patient appears to have baseline creatinine of 1.2-1.4. Consider nephrology consultation. Recheck BMP in the morning. History Interval history: No new issues overnight. Hospitalist Physical - Constitutional Vitals: Temp Pulse Resp BP Pulse Ox 98.0 F 62 20 142/101 95 02/05/18 08:22 02/05/18 09:52 02/05/18 08:22 02/05/18 09:52 02/05/18 08:22 General appearance: Present: no acute distress, obese - EENT Eyes: Present: PERRL, EOM intact ENT: hearing intact, clear oral mucosa, dentition normal - Neck Neck: Present: supple, normal ROM - Respiratory Respiratory effort: normal Respiratory: bilateral: CTA - Cardiovascular Rhythm: regular Heart Sounds: Present: S1 & S2. Absent: gallop, rub - Extremities Extremities: no ischemia, No edema, Full ROM - Abdominal General gastrointestinal: soft, non-tender, non-distended, normal bowel sounds - Integumentary Integumentary: Present: clear, warm, dry - Neurologic Neurologic: CNII-XII intact, moves all extremities Results - Labs CBC & Chem 7: 02/04/18 13:31 02/04/18 13:31 Labs: Laboratory Last Values WBC 6.2 K/mm3 (4.5-11.0) 02/04/18 13:31 RBC 4.08 M/mm3 (3.65-5.03) 02/04/18 13:31 Hgb 12.7 gm/dl (11.8-15.2) 02/04/18 13:31 Hct 38.2 % (35.5-45.6) 02/04/18 13:31 MCV 94 fl (84-94) 02/04/18 13:31 MCH 31 pg (28-32) 02/04/18 13:31 MCHC 33 % (32-34) 02/04/18 13:31 RDW 16.0 % (13.2-15.2) H 02/04/18 13:31 Plt Count 213 K/mm3 (140-440) 02/04/18 13:31 Lymph % (Auto) 29.9 % (13.4-35.0) 02/04/18 13:31 [place] % (Auto) 7.9 % (0.0-7.3) H 02/04/18 13:31 Eos % (Auto) 3.3 % (0.0-4.3) 02/04/18 13:31 Baso % (Auto) 1.0 % (0.0-1.8) 02/04/18 13:31 Lymph # 1.9 K/mm3 (1.2-5.4) 02/04/18 13:31 [place] # 0.5 K/mm3 (0.0-0.8) 02/04/18 13:31 Eos # 0.2 K/mm3 (0.0-0.4) 02/04/18 13:31 Baso # 0.1 K/mm3 (0.0-0.1) 02/04/18 13:31 Seg Neutrophils % 57.9 % (40.0-70.0) 02/04/18 13:31 Seg Neutrophils # 3.6 K/mm3 (1.8-7.7) 02/04/18 13:31 PT 12.3 Sec. (12.2-14.9) 02/04/18 14:00 INR 0.87 (0.87-1.13) 02/04/18 14:00 APTT 26.6 Sec. (24.2-36.6) 02/04/18 14:00 D-Dimer 329.90 ng/mlDDU (0-234) H 02/04/18 14:00 Sodium 146 mmol/L (137-145) H 02/04/18 13:31 Potassium 4.0 mmol/L (3.6-5.0) 02/04/18 13:31 Chloride 105.0 mmol/L (98-107) 02/04/18 13:31 Carbon Dioxide 28 mmol/L (22-30) 02/04/18 13:31 Anion Gap 17 mmol/L 02/04/18 13:31 BUN 15 mg/dL (9-20) 02/04/18 13:31 Creatinine 1.6 mg/dL (0.8-1.5) H 02/04/18 13:31 Estimated GFR 55 ml/min 02/04/18 13:31 BUN/Creatinine Ratio 9 % 02/04/18 13:31 Glucose 104 mg/dL (75-100) H 02/04/18 13:31 Calcium 8.5 mg/dL (8.4-10.2) 02/04/18 13:31 Total Bilirubin 0.50 mg/dL (0.1-1.2) 02/04/18 14:00 Direct Bilirubin < 0.2 mg/dL (0-0.2) 02/04/18 14:00 AST 24 units/L (5-40) 02/04/18 14:00 ALT 27 units/L (7-56) 02/04/18 14:00 Alkaline Phosphatase 84 units/L (35-129) 02/04/18 14:00 Total Creatine Kinase 390 units/L (55-170) H 02/04/18 17:54 CK-MB (CK-2) 4.4 ng/mL (0.0-4.0) H 02/04/18 17:54 CK-MB (CK-2) Rel Index 1.1 (0-4) 02/04/18 17:54 Troponin T 0.011 ng/mL (0.00-0.029) 02/04/18 13:31 NT-Pro-B Natriuret Pep 3140 pg/mL (0-900) H 02/04/18 13:31 Total Protein 6.4 g/dL (6.3-8.2) 02/04/18 14:00 Albumin 3.9 g/dL (3.9-5) 02/04/18 14:00 Albumin/Globulin Ratio 1.6 % 02/04/18 14:00 Urine Color Colorless (Yellow) 02/04/18 13:55 Urine Turbidity Clear (Clear) 02/04/18 13:55 Urine pH 6.0 (5.0-7.0) 02/04/18 13:55 Ur Specific [place] 1.005 (1.003-1.030) 02/04/18 13:55 Urine Protein <15 mg/dl mg/dL (Negative) 02/04/18 13:55 Urine Glucose (UA) Neg mg/dL (Negative) 02/04/18 13:55 Urine Ketones Neg mg/dL (Negative) 02/04/18 13:55 Urine Blood Neg (Negative) 02/04/18 13:55 Urine Nitrite Neg (Negative) 02/04/18 13:55 Urine Bilirubin Neg (Negative) 02/04/18 13:55 Urine Urobilinogen < 2.0 mg/dL (<2.0) 02/04/18 13:55 Ur Leukocyte Esterase Neg (Negative) 02/04/18 13:55 Urine WBC (Auto) < 1.0 /HPF (0.0-6.0) 02/04/18 13:55 Urine RBC (Auto) < 1.0 /HPF (0.0-6.0) 02/04/18 13:55 Urine Creatinine 70.4 mg/dL (0.1-20.0) H 02/04/18 21:53 Urine Sodium 140 mmol/L 02/04/18 21:53 Urine Opiates Screen Presumptive negative 02/04/18 13:55 Urine Methadone Screen Presumptive negative 02/04/18 13:55 Ur Barbiturates Screen Presumptive negative 02/04/18 13:55 Ur Phencyclidine Scrn Presumptive negative 02/04/18 13:55 Ur Amphetamines Screen Presumptive negative 02/04/18 13:55 U Benzodiazepines Scrn Presumptive negative 02/04/18 13:55 Urine Cocaine Screen Presumptive positive 02/04/18 13:55 U Marijuana (THC) Screen Presumptive negative 02/04/18 13:55 Drugs of Abuse Note Disclamer 02/04/18 13:55
--- NOTE | 2018-02-05 12:35 | Consultation ---
History of Present Illness Consult date: 02/05/18 Consult reason: congestive heart failure History of present illness: Mr Hansen is a 52 year old man with a long history of dilated nonischemic cardiomyopathy. His latest echocardiogram documents a severe left ventricular dysfunction, ejection fraction 15-20%. He presented with shortness of breath, lower extremity edema admitted with decompensated heart failure. Patient admits with noncompliance with his medications and dietary restrictions. His ECG shows sinus rhythm with LVH of repolarization abnormalities. Cardiology consultation was requested for CHF management. Past History Social history: , lives with family, smoking Family history: diabetes, hypertension Medications and Allergies Allergies Allergy/AdvReac Type Severity Reaction Status Date / Time No Known Allergies Allergy Verified 04/26/17 16:12 Home Medications Medication Instructions Recorded Confirmed Last Taken Type ALBUTEROL Inhaler (OR & NICU) 1 - 2 puff IH Q4-6H PRN #1 inha 02/03/17 02/05/18 Unknown Rx [ProAir HFA Inhaler] Carvedilol [Coreg] 12.5 mg PO BID 09/27/17 02/05/18 09/25/17 History Pantoprazole [Protonix TAB] 40 mg PO QDAY 09/27/17 02/05/18 09/25/17 History Potassium Chloride [K-Dur] 10 meq PO QDAY 09/27/17 02/05/18 09/25/17 History Aspirin [Aspirin TAB] 325 mg PO QDAY #30 tablet 09/28/17 02/05/18 Unknown Rx Spironolactone [Aldactone] 25 mg PO QDAY #30 tablet 09/28/17 02/05/18 Unknown Rx Torsemide [Demadex] 20 mg PO DAILY #30 tablet 09/28/17 02/05/18 Unknown Rx Hydralazine HCl 50 mg PO BID #60 tablet 11/18/17 02/05/18 Unknown Rx Active Meds: Active Medications Acetaminophen (Tylenol) 650 mg PO Q4H PRN PRN Reason: Pain MILD(1-3)/Fever >100.5/MCFADDEN Albuterol (Proventil) 2.5 mg IH Q4H PRN PRN Reason: Shortness Of Breath Aspirin (Aspirin) 325 mg PO QDAY [facility] Last Admin: 02/05/18 09:51 Dose: 325 mg Carvedilol (Coreg) 12.5 mg PO BID [facility] Last Admin: 02/05/18 09:52 Dose: 12.5 mg Hydralazine HCl (Apresoline) 50 mg PO BID [facility] Last Admin: 02/05/18 09:52 Dose: 50 mg Ondansetron HCl (Zofran) 4 mg IV Q8H PRN PRN Reason: Nausea And Vomiting Pantoprazole Sodium (Protonix) 40 mg PO QDAY [facility] Last Admin: 02/05/18 09:51 Dose: 40 mg Potassium Chloride (K-Dur) 10 meq PO QDAY [facility] Last Admin: 02/05/18 09:53 Dose: 10 meq Sodium Chloride (Sodium Chloride Flush Syringe 10 Ml) 10 ml IV BID [facility] Last Admin: 02/05/18 09:54 Dose: 10 ml Sodium Chloride (Sodium Chloride Flush Syringe 10 Ml) 10 ml IV PRN PRN PRN Reason: LINE FLUSH Spironolactone (Aldactone) 25 mg PO QDAY [facility] Last Admin: 02/05/18 09:51 Dose: 25 mg Torsemide (Demadex) 20 mg PO DAILY [facility] Physical Examination Vital Signs Temp Pulse Resp BP Pulse Ox 98.3 F 86 20 175/111 94 02/04/18 13:24 02/04/18 13:24 02/04/18 13:24 02/04/18 13:24 02/04/18 13:24 General appearance: no acute distress HEENT: Positive: PERRL Cardiac: Positive: Reg Rate and Rhythm Lungs: Positive: Decreased Breath Sounds Neuro: Positive: Grossly Intact Extremities: Present: +1 Edema Results 02/04/18 13:31 02/04/18 13:31 Cardiac Enzymes 02/04/18 02/04/18 Range/Units 14:00 17:54 AST 24 (5-40) units/L CK-MB (CK-2) 4.4 H (0.0-4.0) ng/mL Coagulation 02/04/18 Range/Units 14:00 PT 12.3 (12.2-14.9) Sec. INR 0.87 (0.87-1.13) APTT 26.6 (24.2-36.6) Sec. CBC 02/04/18 Range/Units 13:31 WBC 6.2 (4.5-11.0) K/mm3 RBC 4.08 (3.65-5.03) M/mm3 Hgb 12.7 (11.8-15.2) gm/dl Hct 38.2 (35.5-45.6) % Plt Count 213 (140-440) K/mm3 Lymph # 1.9 (1.2-5.4) K/mm3 [place] # 0.5 (0.0-0.8) K/mm3 Eos # 0.2 (0.0-0.4) K/mm3 Baso # 0.1 (0.0-0.1) K/mm3 Comprehensive Metabolic Panel 02/04/18 02/04/18 Range/Units 13:31 14:00 Sodium 146 H (137-145) mmol/L Potassium 4.0 (3.6-5.0) mmol/L Chloride 105.0 (98-107) mmol/L Carbon Dioxide 28 (22-30) mmol/L BUN 15 (9-20) mg/dL Creatinine 1.6 H (0.8-1.5) mg/dL Glucose 104 H (75-100) mg/dL Calcium 8.5 (8.4-10.2) mg/dL Direct Bilirubin < 0.2 (0-0.2) mg/dL AST 24 (5-40) units/L ALT 27 (7-56) units/L Alkaline Phosphatase 84 (35-129) units/L Total Protein 6.4 (6.3-8.2) g/dL Albumin 3.9 (3.9-5) g/dL Assessment and Plan Acute decompensated systolic heart failure Non-ischemic cardiomyopathy, LVEF 15% MPI 08/2017 - large fixed inferior wall defect - unchanged from previous Normal coronaries by cath at [facility] several years ago Hypertension Non-compliance
[2018-02-05] MEDS: DEMADEX PO SCH (13:31)
[2018-02-05] MEDS: ZAROXOLYN PO SCH (16:00)
[2018-02-05] MEDS: HABITROL TD SCH (21:53)
[2018-02-06 09:35] LABS: Hematocrit 40.2 % (35.5-45.6); Hemoglobin 13.2 gm/dl (11.8-15.2); Mean Corpuscular HGB Conc 33 % (32-34); Mean Corpuscular Hemoglobin 31 pg (28-32); Mean Corpuscular Volume 94 fl (84-94); Platelet Count 203 K/mm3 (140-440); Red Blood Count 4.29 M/mm3 (3.65-5.03); Red Cell Distribution Width 15.9 % (13.2-15.2)
[2018-02-06] MEDS: DEMADEX PO SCH (10:16)
[2018-02-06] MEDS: K-DUR PO SCH (10:17)
[2018-02-06] MEDS: ALDACTONE PO SCH (10:17)
[2018-02-06] MEDS: ASPIRIN PO SCH (10:17)
[2018-02-06] MEDS: APRESOLINE PO SCH (10:18)
[2018-02-06] MEDS: COREG PO SCH (10:18)
[2018-02-06] MEDS: ZAROXOLYN PO SCH (10:19)
[2018-02-06] MEDS: PROTONIX PO SCH (10:19)
[2018-02-06] MEDS: SODIUM CHLORIDE FLUSH SYRINGE 10 ML IV SCH (10:20)
[2018-02-06] MEDS: HABITROL TD SCH (10:20)
--- NOTE | 2018-02-06 10:41 | Discharge Summary ---
Providers - Providers Date of Admission: 02/04/18 16:14 Date of discharge: 02/06/18 Attending physician: LAURA COSTELLO 02/04/18 17:23 Consult to Physician [CONS] Routine Comment: Consulting Provider: AVINASH ALFONSO Physician Instructions: Reason For Exam: CHF Primary care physician: ROUND KILN DRAWER Hospitalization Condition: Fair Disposition: DC-01 TO HOME OR SELFCARE Exam - Constitutional Vitals: Temp Pulse Resp BP Pulse Ox 97.6 F 89 20 146/93 94 02/06/18 07:35 02/06/18 10:18 02/06/18 07:35 02/06/18 10:18 02/06/18 07:35 Plan Activity: advance as tolerated Diet: low fat, low cholesterol, low salt Additional Instructions: 1.Follow up with PCP or [facility] in 1 week. 2.Follow up with Dr. Alfonso, cardiology in 1 week Follow up with: PRIMARY CARE, [Primary Care Provider] - 3-5 Days Prescriptions: metOLazone [Zaroxolyn] 5 mg PO QDAY #30 tablet
[2018-02-06 12:08] VITALS: BP 131/97
--- NOTE | 2018-02-06 12:28 | Progress Note ---
Assessment and Plan Acute decompensated systolic heart failure s/t non-compliance Non-ischemic cardiomyopathy, LVEF 15% MPI 08/2017 - large fixed inferior wall defect - unchanged from previous Normal coronaries by cath at [facility] several years ago Hypertension Non-compliance Recommendations: Continue diuretics, afterload reducing agents and beta aminta therapy. Okay to discharge home, cardiac urbina. Subjective Date of service: 02/06/18 Interval history: Patient reports he is feeling better. Wants to go home. Objective Vital Signs Temp Pulse Resp BP BP Pulse Ox 02/06/18 12:06 97.9 F 80 20 131/97 97 02/06/18 10:18 89 146/93 02/06/18 10:17 89 146/93 02/06/18 07:35 97.6 F 87 20 146/93 94 02/06/18 05:19 97.9 F 70 24 126/96 98 02/06/18 00:28 98.3 F 88 24 126/92 94 02/05/18 22:00 84 02/05/18 19:51 98.3 F 86 22 153/109 100 02/05/18 16:09 65 20 159/106 97 02/05/18 14:02 98 - Physical Examination General: No Apparent Distress HEENT: Positive: PERRL (left) Cardiac: Positive: Reg Rate and Rhythm Lungs: Positive: Decreased Breath Sounds Neuro: Positive: Grossly Intact - Labs and Meds CBC 02/06/18 Range/Units 09:18 WBC 6.3 (4.5-11.0) K/mm3 RBC 4.29 (3.65-5.03) M/mm3 Hgb 13.2 (11.8-15.2) gm/dl Hct 40.2 (35.5-45.6) % Plt Count 203 (140-440) K/mm3 Comprehensive Metabolic Panel 02/06/18 Range/Units 09:18 Sodium 140 (137-145) mmol/L Potassium 3.5 L (3.6-5.0) mmol/L Chloride 99.4 (98-107) mmol/L Carbon Dioxide 28 (22-30) mmol/L BUN 17 (9-20) mg/dL Creatinine 1.5 (0.8-1.5) mg/dL Glucose 171 H (75-100) mg/dL Calcium 9.0 (8.4-10.2) mg/dL
== END 2018-02-06 12:55 | disposition home or self-care (01) | DRG 682 ==
LOC: ED 13:17 → 4A 16:14
PROVIDERS: ADMIT Internal Medicine; ATTEND Internal Medicine
PROC: 4A033R1 Measurement of Arterial Saturation, Peripheral, Percutaneous Approach (ICD-10-PCS; principal; 2018-02-04)
DX: N17.9 Acute kidney failure, unspecified (principal); J96.01 Acute respiratory failure with hypoxia; I50.43 Acute on chronic combined systolic (congestive) and diastolic (congestive) heart failure; I42.0 Dilated cardiomyopathy; N18.9 Chronic kidney disease, unspecified; I13.0 Hypertensive heart and chronic kidney disease with heart failure and stage 1 through stage 4 chronic kidney disease, or unspecified chronic kidney disease; E66.9 Obesity, unspecified; K21.9 Gastro-esophageal reflux disease without esophagitis; F17.213 Nicotine dependence, cigarettes, with withdrawal; M19.90 Unspecified osteoarthritis, unspecified site; F14.10 Cocaine abuse, uncomplicated; I25.2 Old myocardial infarction; Z91.14 Patient's other noncompliance with medication regimen; Z83.3 Family history of diabetes mellitus; Z82.49 Family history of ischemic heart disease and other diseases of the circulatory system; Z79.82 Long term (current) use of aspirin; Z79.899 Other long term (current) drug therapy; Q21.1 Atrial septal defect; Z68.32 Body mass index [BMI] 32.0-32.9, adult; Z71.6 Tobacco abuse counseling
CPT/HCPCS: 36415; 71045; 80048; 80074; 80307; 81001; 82550; 82553; 82570; 83880; 84300; 84484; 85025; 85027; 85379; 85610; 85730; 87116; 93005; 93010; 96374; 99406; J1940

== ENCOUNTER 2018-10-03 10:08 | Emergency (ER) | payer MEDICAID ==
[2018-10-03] MEDS ORDERED: ASPIRIN PO ONE (10:20)
[2018-10-03 11:08] LABS: Basophils % (Auto) 0.6 % (0.0-1.8); Eosinophils # (Auto) 0.1 K/mm3 (0.0-0.4); Eosinophils % (Auto) 1.8 % (0.0-4.3); Hematocrit 40.3 % (35.5-45.6); Hemoglobin 13.4 gm/dl (11.8-15.2); Lymphocytes # (Auto) 1.1 K/mm3 (1.2-5.4); Lymphocytes % (Auto) 14.7 % (13.4-35.0); Mean Corpuscular HGB Conc 33 % (32-34); Mean Corpuscular Volume 92 fl (84-94); Monocytes # (Auto) 0.5 K/mm3 (0.0-0.8); Monocytes % (Auto) 6.8 % (0.0-7.3); Platelet Count 205 K/mm3 (140-440); Red Blood Count 4.37 M/mm3 (3.65-5.03)
--- NOTE | 2018-10-03 11:21 | XRay Report ---
Single view chest: Compared to 02/04/18. History: Chest pain. Findings: Cardiomegaly. Trachea is midline. No consolidation, pneumothorax or pleural effusion. Impression: Cardiomegaly. No acute lung changes.
[2018-10-03 11:22] LABS: BUN/Creatinine Ratio 9; Blood Urea Nitrogen 11 mg/dL (9-20); Hemolysis Index 5
[2018-10-03] MEDS ORDERED: ASPIRIN ONE (12:29)
[2018-10-03 12:44] VITALS: BP 145/116
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
--- NOTE | 2018-10-03 13:49 | Cat Scan Report ---
PROCEDURE: CT CHEST WO CON TECHNIQUE: Computerized axial tomography of the chest was performed without contrast material. This study is performed without intravenous contrast and the sensitivity for pathology, including neoplasm s, adenopathy, abscess, pulmonary embolism and aortic dissection, is reduced. CT DOSE LENGTH PRODUCT: 1172.7 mGycm HISTORY: SOB, r/o pneumonia, pulm edema COMPARISONS: CT angiogram of the chest performed on 02/02/2017 . FINDINGS: Heart and pericardium: Marked cardiomegaly. Thoracic aorta: Normal noncontrast appearance. Conventional branching pattern of the aortic arch. Pulmonary vasculature: Normal noncontrast appearance. Lymph nodes: Subcentimeter lymph nodes in the pretracheal, aortopulmonary window, prevascular, and s ubcarinal regions of the mediastinum. Lungs: Groundglass opacities as well as tree-in-bud opacities in the perihilar areas of the right lo wer lobe, right middle lobe, and right upper lobe. Background of centrilobular and paraseptal emphyse matous change. No significant interlobular septal thickening. Pleural space: No effusion, thickening, or pneumothorax. Musculoskeletal structures: No significant abnormality. Upper abdominal structures: No significant abnormality. IMPRESSION: Scattered groundglass opacities and tree-in-bud opacities in the perihilar areas of the right upper l obe, right middle lobe, and right lower lobe, most likely due to infectious or inflammatory process. No intralobular septal thickening to suggest pulmonary edema. Unchanged marked cardiomegaly. Background centrilobular and paraseptal emphysematous change. This document is electronically signed by Diandra Daniels MD., October 03 2018 01:47:40 PM ET
[2018-10-03] MEDS ORDERED: PROVENTIL IH ONE (14:27)
[2018-10-03] MEDS ORDERED: ATROVENT IH ONE (14:27)
[2018-10-03] MEDS ORDERED: LEVAQUIN PO ONE (14:28)
[2018-10-03] MEDS ORDERED: LASIX IV ONE (14:32)
== END 2018-10-03 15:06 | disposition home or self-care (01) ==
LOC: ED 10:08
DX: J40 Bronchitis, not specified as acute or chronic (principal); I11.0 Hypertensive heart disease with heart failure; I50.9 Heart failure, unspecified; K21.9 Gastro-esophageal reflux disease without esophagitis; F17.200 Nicotine dependence, unspecified, uncomplicated
CPT/HCPCS: 36415; 71045; 71250; 80048; 83880; 84484; 85025; 93005; 93010; 94640; 96374; 99285; J1940

== ENCOUNTER 2020-06-10 05:28 | Observation (INO) | payer MEDICAID ==
[2020-06-10] MEDS ORDERED: predniSONE 20 MG TAB PO ONE (05:48)
[2020-06-10] MEDS ORDERED: HYDROcodone/ACETAMINOPHEN 5-325 MG TAB PO ONE (05:50)
[2020-06-10] MEDS ORDERED: IBUPROFEN 800 MG TAB PO ONE (05:51)
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
--- NOTE | 2020-06-10 06:25 | Event Note ---
ED Screening Note Date of service: 06/10/20 Time: 06:19 ED Screening Note: pt is a 54 y/o aam who presents for right elbow pain and swelling, pt states he went to sleep and woke up in pain. pain described as 7/10 sharp to right posterior elbow, pain is exacerbated by movement, pain is relieved by nothing tried, pain awakened pt roughly 3 hrs ago, pt denies etoh today, no hx or cva, pos hx of arthritis, unkown if gout. there has been no fall injury or trauma , there is no numbness or paralysis, This initial assessment/diagnostic orders/clinical plan/treatment(s) is/are subject to change based on patients health status, clinical progression and re- assessment by fellow clinical providers in the ED. Further treatment and workup at subsequent clinical providers discretion. Patient/guardian urged not to elope from the ED as their condition may be serious if not clinically assessed and managed. Initial orders include: elbow xray, prednisone, ibuprofen, hydrocodone,
--- NOTE | 2020-06-10 06:45 | XRay Report ---
RIGHT ELBOW 4 VIEW(S) INDICATION / CLINICAL INFORMATION: elbow pain COMPARISON: None available. FINDINGS: Only lateral views were obtained. Patient would not position arm for AP or oblique views. BONES / JOINT(S): No definite acute fracture or subluxation on this limited study. No significant art hritis. Small joint effusion. SOFT TISSUES: Mild posterior soft tissue swelling. ADDITIONAL FINDINGS: None. Signer Name: Siri Devries MD Signed: 06/10/2020 6:41 AM Workstation Name: [id number]
[2020-06-10] MEDS ORDERED: ONDANSETRON 4 MG/2 ML INJ IV ONE (07:13)
[2020-06-10] MEDS ORDERED: HYDROmorphone 1 MG/1 ML INJ IV ONE (07:13)
[2020-06-10] MEDS ORDERED: diphenhydrAMINE 50 MG/ML VIAL IV ONE (07:14)
[2020-06-10 07:42] LABS: Basophils # (Auto) 0.1 K/mm3 (0.0-0.1); Basophils % (Auto) 0.6 % (0.0-1.8); Eosinophils # (Auto) 0.1 K/mm3 (0.0-0.4); Eosinophils % (Auto) 1.4 % (0.0-4.3); Hematocrit 38.9 % (35.5-45.6); Hemoglobin 12.9 gm/dl (11.8-15.2); Lymphocytes # (Auto) 0.8 K/mm3 (1.2-5.4); Lymphocytes % (Auto) 8.1 % (13.4-35.0); Mean Corpuscular HGB Conc 33 % (32-34); Mean Corpuscular Volume 88 fl (84-94); Monocytes # (Auto) 0.9 K/mm3 (0.0-0.8); Monocytes % (Auto) 9.9 % (0.0-7.3); Platelet Count 214 K/mm3 (140-440); Red Blood Count 4.43 M/mm3 (3.65-5.03); Red Cell Distribution Width 18.6 % (13.2-15.2)
[2020-06-10 07:59] LABS: INR 0.97 (0.87-1.13)
[2020-06-10 08:00] LABS: Partial Thromboplastin Time 26.9 Sec. (24.2-36.6)
[2020-06-10 08:02] LABS: Creatine Kinase MB 2.8 ng/mL (0.0-4.0)
[2020-06-10 08:04] LABS: Albumin 3.9 g/dL (3.9-5); Bilirubin,Direct 0.4 mg/dL (0-0.2); Uric Acid 10.4 mg/dL (3.5-7.6)
[2020-06-10 08:05] LABS: BUN/Creatinine Ratio 9; Blood Urea Nitrogen 12 mg/dL (9-20); Calcium 8.7 mg/dL (8.4-10.2); Hemolysis Index 3
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
[2020-06-10] MEDS ORDERED: CEFEPIME/NS 1 GM/100 ML 1 GM/100 ML BAG IV ONE (10:49)
[2020-06-10] MEDS ORDERED: POTASSIUM CHLORIDE ER 20 MEQ TAB PO ONE (10:59)
[2020-06-10] MEDS ORDERED: FUROSEMIDE 40 MG/4 ML INJ IV ONE (10:59)
[2020-06-10] MEDS ORDERED: VANCOMYCIN PHARMACY TO DOSE IV SCH (11:00)
[2020-06-10 11:05] LABS: Total Cells Counted 100 /mm3
[2020-06-10] MEDS ORDERED: ASPIRIN 325 MG TAB PO ONE (11:07)
--- NOTE | 2020-06-10 11:27 | XRay Report ---
CHEST 1 VIEW INDICATION: hypertension COMPARISON: 08/26/2019 FINDINGS: SUPPORT DEVICES: Pacing device located over left hemithorax electrode tip right atrium HEART / MEDIASTINUM: Persisting cardiac enlargement LUNGS / PLEURA: Persistent prominent bronchovascular markings. No pneumothorax. ADDITIONAL FINDINGS: IMPRESSION: 1. No significant changes compared to previous exam Signer Name: Gavin Albright MD Signed: 06/10/2020 11:23 AM Workstation Name: [id number]
[2020-06-10] MEDS ORDERED: HYDROmorphone 1 MG/1 ML INJ IV PRN (11:51)
[2020-06-10] MEDS ORDERED: VANCOMYCIN 2,000 MG in SODIUM CHLORIDE 0.9% 500 ML 500 ML IV ONE (12:00)
[2020-06-10 14:47] VITALS: BP 107/78
== END 2020-06-10 18:01 | disposition home or self-care (01) ==
LOC: ED 05:28 → 4A 11:47
PROVIDERS: ADMIT Internal Medicine; ATTEND Internal Medicine
DX: M00.9 Pyogenic arthritis, unspecified (principal); I11.0 Hypertensive heart disease with heart failure; I50.9 Heart failure, unspecified; N17.9 Acute kidney failure, unspecified; J44.1 Chronic obstructive pulmonary disease with (acute) exacerbation; M19.90 Unspecified osteoarthritis, unspecified site; K21.9 Gastro-esophageal reflux disease without esophagitis; F17.200 Nicotine dependence, unspecified, uncomplicated; Z79.82 Long term (current) use of aspirin; Z98.890 Other specified postprocedural states
CPT/HCPCS: 36415; 71045; 73080; 80048; 80076; 82140; 82550; 82553; 82947; 83735; 83880; 84550; 85025; 85048; 85610; 85730; 87116; 89051; 93005; 96365; 96366; 96367; 96375; 96376; 99285; G0378; J0692; J1170; J1200; J1940; J2405; J3370; J7040; J7512

== ENCOUNTER 2021-08-15 05:27 | Emergency (ER) | payer MEDICAID ==
[2021-08-15 06:29] LABS: Basophils # (Auto) 0.1 K/mm3 (0.0-0.1); Basophils % (Auto) 0.8 % (0.0-1.8); Eosinophils # (Auto) 0.2 K/mm3 (0.0-0.4); Eosinophils % (Auto) 2.8 % (0.0-4.3); Hemoglobin 12.7 gm/dl (11.8-15.2); Lymphocytes # (Auto) 1.3 K/mm3 (1.2-5.4); Lymphocytes % (Auto) 19.3 % (13.4-35.0); Mean Corpuscular HGB Conc 32 % (32-34); Mean Corpuscular Volume 84 fl (84-94); Monocytes # (Auto) 0.7 K/mm3 (0.0-0.8); Monocytes % (Auto) 10.1 % (0.0-7.3); Platelet Count 200 K/mm3 (140-440); Red Blood Count 4.79 M/mm3 (3.65-5.03); Red Cell Distribution Width 18.5 % (13.2-15.2)
[2021-08-15 06:38] LABS: Albumin 3.5 g/dL (3.9-5); Calcium 8.3 mg/dL (8.4-10.2)
[2021-08-15] MEDS ORDERED: ONDANSETRON 4 MG/2 ML INJ IV ONE (07:28)
[2021-08-15] MEDS ORDERED: SODIUM CHLORIDE 0.9% 1000 ML 1,000 ML IV ONE (07:28)
[2021-08-15] MEDS ORDERED: MORPHINE 4 MG/1 ML INJ IV ONE (07:28)
[2021-08-15] MEDS ORDERED: PANTOPRAZOLE 40 MG INJ IV ONE (07:28)
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
[2021-08-15 09:04] LABS: Bilirubin,Urine NEG (Negative); Blood,Urine NEG (Negative); Color,Urine Yellow (Yellow); Mucus,Urine FEW /HPF; RBC,Urine < 1.0 /HPF (0.0-6.0); Urobilinogen,Urine < 2.0 mg/dL (<2.0); WBC,Urine < 1.0 /HPF (0.0-6.0)
[2021-08-15] MEDS ORDERED: fentaNYL 100 MCG/2 ML INJ IV ONE (09:37)
--- NOTE | 2021-08-15 09:44 | Cat Scan Report ---
CT abdomen pelvis w con INDICATION / CLINICAL INFORMATION: abdominal pain omnipaque 300 100ml. TECHNIQUE: Axial CT imaging of abdomen and pelvis was obtained with IV contrast. Coronal and sagittal reformatte d imaging obtained and reviewed. All CT scans at this location are performed using CT dose reduction for ALARA by means of automated exposure control. COMPARISON: Prior CT abdomen/pelvis 11/16/2017 FINDINGS: CT abdomen with IV contrast demonstrates grossly normal appearance of the liver, spleen, pancreas, ki dneys, and abdominal aorta. Both adrenal glands are mildly thickened, but without focal mass. The bijal earance of both adrenal glands is unchanged from 2018. Gallbladder is collapsed. No biliary dilatatio n. CT pelvis with contrast does not demonstrate any pelvic mass, free fluid, or focal inflammatory gibbons e. A normal appendix is present within the right lower quadrant. Prostate gland is mildly enlarged. G I tract is unremarkable. Visualized lung bases do not demonstrate any acute pulmonary or pleural disease. Moderate cardiomegal y. No significant acute osseous abnormality noted. IMPRESSION: 1. No acute finding within the abdomen or pelvis. 2. Bilateral adrenal gland hyperplasia, unchanged in appearance since 2018. 3. Cardiomegaly. Signer Name: So Iqbal MD Signed: 08/15/2021 9:39 AM Workstation Name: [id number]
[2021-08-15] MEDS ORDERED: ALUM-MAG HYDROXIDE-SIMETHICONE 200-200-20MG/5ML ORAL LIQD 30 ML PO ONE (10:24)
[2021-08-15] MEDS ORDERED: LIDOCAINE VISCOUS 2% 15 ML ORAL LIQD PO ONE (10:24)
[2021-08-15 12:26] VITALS: BP 102/59
--- NOTE | 2021-08-16 14:16 | Electrocardiograph Report ---
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
== END 2021-08-15 12:26 | disposition home or self-care (01) ==
LOC: ED 05:27
DX: K25.9 Gastric ulcer, unspecified as acute or chronic, without hemorrhage or perforation (principal); R10.9 Unspecified abdominal pain; I10 Essential (primary) hypertension
CPT/HCPCS: 36415; 74177; 80053; 81001; 83690; 84484; 85025; 93005; 96361; 96374; 96375; 99284; C9113; J2270; J2405; J3010; J7030; Q9967; Q0162

== ENCOUNTER 2021-09-19 19:48 | Emergency (ER) | payer MEDICAID ==
[2021-09-19] MEDS ORDERED: predniSONE 50 MG TAB PO STA (21:14)
[2021-09-19] MEDS ORDERED: oxyCODONE /ACETAMINOPHEN 5-325MG TAB PO ONE (21:14)
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
[2021-09-19] MEDS ORDERED: KETOROLAC 30 MG/1 ML INJ IV ONE (23:38)
[2021-09-20 01:34] VITALS: BP 113/80
== END 2021-09-20 01:35 | disposition home or self-care (01) ==
LOC: ED 19:48
DX: M10.9 Gout, unspecified (principal); I11.0 Hypertensive heart disease with heart failure; I50.9 Heart failure, unspecified; K21.9 Gastro-esophageal reflux disease without esophagitis; M19.90 Unspecified osteoarthritis, unspecified site; J44.9 Chronic obstructive pulmonary disease, unspecified; Z98.890 Other specified postprocedural states; F17.290 Nicotine dependence, other tobacco product, uncomplicated
CPT/HCPCS: 96374; 99283; J1885; J7512

== ENCOUNTER 2021-09-30 18:38 | Inpatient (IN) | payer MEDICAID ==
[2021-09-30] MEDS ORDERED: ASPIRIN 325 MG TAB PO ONE (19:06)
[2021-09-30 19:32] LABS: Basophils # (Auto) 0.1 K/mm3 (0.0-0.1); Basophils % (Auto) 1.1 % (0.0-1.8); Eosinophils # (Auto) 0.3 K/mm3 (0.0-0.4); Eosinophils % (Auto) 5.5 % (0.0-4.3); Hematocrit 38.2 % (35.5-45.6); Hemoglobin 12.5 gm/dl (11.8-15.2); Lymphocytes # (Auto) 1.4 K/mm3 (1.2-5.4); Lymphocytes % (Auto) 22.5 % (13.4-35.0); Mean Corpuscular HGB Conc 33 % (32-34); Mean Corpuscular Volume 83 fl (84-94); Monocytes # (Auto) 0.8 K/mm3 (0.0-0.8); Monocytes % (Auto) 13.6 % (0.0-7.3); Platelet Count 202 K/mm3 (140-440)
[2021-09-30 19:35] LABS: Red Cell Distribution Width 20.6 % (13.2-15.2)
[2021-09-30 19:54] LABS: Alanine Aminotransferase 13 units/L (7-56); Albumin 3.9 g/dL (3.9-5); BUN/Creatinine Ratio 15; Blood Urea Nitrogen 22 mg/dL (9-20); Calcium 8.6 mg/dL (8.4-10.2); Hemolysis Index 3
--- NOTE | 2021-09-30 20:27 | XRay Report ---
Chest single view INDICATION: Dyspnea IMPRESSION: Cardiomegaly with moderate bilateral cardiopulmonary edema. Small pleural effusions prese nt. Signer Name: Benjamin Rodriges MD Signed: 09/30/2021 8:23 PM Workstation Name: [id number]
[2021-09-30] MEDS ORDERED: FUROSEMIDE 40 MG/4 ML INJ IV ONE (22:01)
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
[2021-09-30] MEDS ORDERED: CYCLOBENZAPRINE 10 MG TAB PO ONE (22:08)
[2021-10-01] MEDS ORDERED: ALBUTEROL 2.5 MG/3 ML NEBU IH PRN ×2 (00:01→00:04)
[2021-10-01] MEDS ORDERED: MORPHINE 4 MG/1 ML INJ IV PRN (00:01)
[2021-10-01] MEDS ORDERED: ONDANSETRON 4 MG/2 ML INJ IV PRN (00:01)
[2021-10-01] MEDS ORDERED: ACETAMINOPHEN 325 MG TAB PO PRN (00:01)
[2021-10-01] MEDS ORDERED: ALBUTEROL 8.5 GM MDI INHALATION IH PRN (00:04)
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
[2021-10-01] MEDS ORDERED: IPRATROPIUM/ALBUTEROL SULFATE 3 ML AMPUL.NEB IH SCH (02:00)
[2021-10-01] MEDS: ISOSORB DINIT/HYDRALAZINE 20-37.5MG TAB PO SCH ×3 (05:45→23:00)
[2021-10-01 05:53] LABS: Calcium 8.3 mg/dL (8.4-10.2)
[2021-10-01] MEDS: IPRATROPIUM/ALBUTEROL SULFATE 3 ML AMPUL.NEB IH SCH ×3 (07:50→20:41)
--- NOTE | 2021-10-01 08:56 | Electrocardiograph Report ---
[facility] Test Date: 2021-09-30 Test Time: 19:56:13 Pat Name: RANDY MOODY Department: Room: A456 Gender: M Continuity Person: LASHAWN : 1965 Requested By: ED DOC Order Number: [id number] Reading MD: Ben Perea Measurements Intervals [place] Rate: 82 P: 47 [place]: 270 QRS: -53 QRSD: 88 T: 87 QT: 421 QTc: 492 Interpretive Statements Sinus rhythm Prolonged [place] interval Probable left atrial enlargement Inferior infarct, old Probable anteroseptal infarct, old Compared to ECG 09/06/2021 13:28:05 First degree AV block now present Atrial fibrillation no longer present Ventricular premature complex(es) no longer present Myocardial infarct finding still present Electronically Signed On 10-01-2021 8:56:26 EDT by Ben Perea
--- NOTE | 2021-10-01 08:57 | Electrocardiograph Report ---
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
[2021-10-01] MEDS ORDERED: NON-FORMULARY EACH (Apixaban 5 MG Tablet) PO SCH (10:00)
[2021-10-01] MEDS ORDERED: FAMOTIDINE 20 MG TAB PO SCH (10:00)
[2021-10-01] MEDS ORDERED: FUROSEMIDE 40 MG/4 ML INJ IV SCH (10:00)
[2021-10-01] MEDS ORDERED: HEPARIN 5,000 UNIT/1 ML VIAL SUB-Q SCH (10:00)
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
[2021-10-01] MEDS: SPIRONOLACTONE 50 MG TAB PO SCH (10:18)
[2021-10-01] MEDS: APIXABAN 5 MG TAB PO SCH ×2 (10:18→22:07)
[2021-10-01] MEDS: AMIODARONE 200 MG TAB PO SCH ×2 (10:18→22:58)
[2021-10-01] MEDS: FUROSEMIDE 40 MG/4 ML INJ IV SCH ×2 (10:18→18:46)
[2021-10-01] MEDS: SUCRALFATE 1 GM TAB PO SCH ×4 (10:18→22:07)
[2021-10-01] MEDS: VALSARTAN 40 MG TAB PO SCH (10:18)
[2021-10-01] MEDS: PANTOPRAZOLE 40 MG TAB PO SCH (10:18)
[2021-10-01] MEDS: carvediloL 25 MG TAB PO SCH ×2 (10:18→23:00)
--- NOTE | 2021-10-01 13:47 | Event Note ---
Date: 10/01/21 #Acute on chronic systolic heart failure - Continue CHF exacerbation protocol: Telemetry, Strict I/O, monitor urine outp ut every shift, daily weights, afterload reduction, low-sodium diet, and fluid restriction of approximately 1.5 mL/day, IV Lasix 40 mg twice daily, spironolactone 50 mg daily, metolazone - Initiating milrinone infusion - Supplemental oxygen: Room air - ProBNP on admission: 3785 - Cardiology consulted; appreciate recs -Previous TTE revealing EF 15-20%. Canceled repeat TTE given recent's evaluation and discharge. - Continue to monitor #Hyperlipidemia #Hypertension - home medications: Amiodarone 200 mg daily, BiDil 20/37.5 mg every 8 hours, Aldactone 50 mg daily, Lipitor 40 mg daily - current medications: Coreg 25 mg twice daily, Aldactone 50 mg daily, valsartan 40 mg daily - SBP goal <160 and DBP goal <90 while inpatient - continue to monitor #AKIruled out Creatinine 1.6 (baseline 1.4-1.6) Continue to monitor with daily BMP #Hypocalcemia Calcium 8.3 Repleted. Continue to monitor. #Tobacco dependence #Tobacco/Smoking cessation counseling - Counseled patient about the importance of smoking cessation and the possible sequelae as a result of continued tobacco consumption. The patient expresses understanding. -Time: +15 mins #Coordination of CARE time: 30 minutes. Total visit time equals 30 or more minutes with greater than 50% spent [id number] on coordination of care and counseling. #Advanced care planning -Disease education conducted, care plan discussed, diagnoses discussed, prognosis discussed, and patient acknowledges understanding with care plan -Time: +30 min
[2021-10-01] MEDS ORDERED: SODIUM CHLORIDE 0.9% 1000 ML 1,000 ML IV ONE (17:30)
[2021-10-01] MEDS: CALCIUM CARBONATE 1250 MG TAB PO SCH (18:45)
[2021-10-01] MEDS: metOLazone 5 MG TAB PO SCH (18:45)
[2021-10-02] MEDS: FUROSEMIDE 40 MG/4 ML INJ IV SCH ×2 (06:19→18:15)
[2021-10-02] MEDS: ISOSORB DINIT/HYDRALAZINE 20-37.5MG TAB PO SCH ×3 (06:19→23:50)
[2021-10-02 08:09] LABS: Basophils % (Auto) 0.7 % (0.0-1.8); Eosinophils # (Auto) 0.3 K/mm3 (0.0-0.4); Eosinophils % (Auto) 4.4 % (0.0-4.3); Lymphocytes # (Auto) 1.4 K/mm3 (1.2-5.4); Lymphocytes % (Auto) 24.3 % (13.4-35.0); Mean Corpuscular HGB Conc 31 % (32-34); Mean Corpuscular Volume 83 fl (84-94); Monocytes # (Auto) 0.6 K/mm3 (0.0-0.8); Monocytes % (Auto) 9.5 % (0.0-7.3); Platelet Count 210 K/mm3 (140-440)
[2021-10-02 08:12] LABS: Calcium 8.2 mg/dL (8.4-10.2)
[2021-10-02 08:19] LABS: Hemoglobin 12.2 gm/dl (11.8-15.2)
[2021-10-02 08:20] LABS: Red Cell Distribution Width 20.7 % (13.2-15.2)
[2021-10-02] MEDS: IPRATROPIUM/ALBUTEROL SULFATE 3 ML AMPUL.NEB IH SCH ×3 (08:23→22:08)
[2021-10-02] MEDS: MILRINONE-D5W 20 MG/100 ML 20 MG/100 ML BAG IV SCH ×2 (10:16→22:45)
[2021-10-02] MEDS: SPIRONOLACTONE 50 MG TAB PO SCH (10:18)
[2021-10-02] MEDS: SUCRALFATE 1 GM TAB PO SCH ×4 (10:18→21:54)
[2021-10-02] MEDS: metOLazone 5 MG TAB PO SCH (10:18)
[2021-10-02] MEDS: VALSARTAN 40 MG TAB PO SCH (10:18)
[2021-10-02] MEDS: AMIODARONE 200 MG TAB PO SCH ×2 (10:18→21:54)
[2021-10-02] MEDS: CALCIUM CARBONATE 1250 MG TAB PO SCH (10:18)
[2021-10-02] MEDS: APIXABAN 5 MG TAB PO SCH ×2 (10:18→21:55)
[2021-10-02] MEDS: carvediloL 25 MG TAB PO SCH ×2 (10:19→23:10)
[2021-10-02] MEDS: PANTOPRAZOLE 40 MG TAB PO SCH (10:19)
[2021-10-02] MEDS: MORPHINE 2 MG/1 ML INJ IV PRN ×2 (10:24→22:51)
--- NOTE | 2021-10-02 11:10 | Progress Note ---
Assessment and Plan - Patient Problems (1) Acute on chronic systolic heart failure Current Visit: Yes Status: Acute (2) Acute exacerbation of CHF (congestive heart failure) Current Visit: No Status: Acute Qualifiers: Heart failure type: combined systolic and diastolic Qualified Code(s): I50.43 - Acute on chronic combined systolic (congestive) and diastolic (congestive) heart failure (3) Acute on chronic renal failure Current Visit: No Status: Acute Subjective Date of service: 10/02/21 Interval history: FEELS ALITTLE BETTER Objective Vital Signs Temp Pulse Pulse Resp Resp BP BP 10/02/21 08:39 92 H 20 10/02/21 08:23 10/02/21 07:50 98.2 F 87 18 101/70 10/02/21 04:25 97.5 F L 83 18 10/02/21 04:00 19 135/67 10/02/21 01:09 10/02/21 00:00 71 10/01/21 22:32 91 H 10/01/21 22:08 72 17 100/71 10/01/21 20:39 10/01/21 20:38 70 18 10/01/21 20:15 98.0 F 67 18 121/77 10/01/21 15:58 76 87/42 10/01/21 15:00 10/01/21 13:48 66 20 10/01/21 11:49 98.2 F 58 L 18 92/75 Pulse Ox 10/02/21 08:39 10/02/21 08:23 98 10/02/21 07:50 95 10/02/21 04:25 96 10/02/21 04:00 97 10/02/21 01:09 95 10/02/21 00:00 10/01/21 22:32 10/01/21 22:08 93 10/01/21 20:39 95 10/01/21 20:38 10/01/21 20:15 92 10/01/21 15:58 80 L 10/01/21 15:00 95 10/01/21 13:48 10/01/21 11:49 92 - Physical Examination HEENT: Positive: PERRL Neck: Positive: neck supple, JVD/HJR Cardiac: Positive: Reg Rate and Rhythm Lungs: Positive: Rales Neuro: Positive: Grossly Intact Abdomen: Positive: Soft Skin: Positive: Clear Extremities: Present: +1 Edema - Labs and Meds CBC 10/02/21 Range/Units 07:17 WBC 5.8 (4.5-11.0) K/mm3 RBC 4.80 (3.65-5.03) M/mm3 Hgb 12.2 (11.8-15.2) gm/dl Hct 40.0 (35.5-45.6) % Plt Count 210 (140-440) K/mm3 Lymph # (Auto) 1.4 (1.2-5.4) K/mm3 [place] # (Auto) 0.6 (0.0-0.8) K/mm3 Eos # (Auto) 0.3 (0.0-0.4) K/mm3 Baso # (Auto) 0.0 (0.0-0.1) K/mm3 Comprehensive Metabolic Panel 10/02/21 Range/Units 07:17 Sodium 140 (137-145) mmol/L Potassium 4.2 (3.6-5.0) mmol/L Chloride 103.6 (98-107) mmol/L Carbon Dioxide 28 (22-30) mmol/L BUN 21 H (9-20) mg/dL Creatinine 1.5 H (0.8-1.3) mg/dL Glucose 103 H (75-100) mg/dL Calcium 8.2 L (8.4-10.2) mg/dL
--- NOTE | 2021-10-02 13:43 | Progress Note ---
Assessment and Plan Assessment and plan: #Acute on chronic systolic heart failure - Continue CHF exacerbation protocol: Telemetry, Strict I/O, monitor urine output every shift, daily weights, afterload reduction, low-sodium diet, and fluid restriction of approximately 1.5 mL/day, IV Lasix 40 mg twice daily, spironolactone 50 mg daily, metolazone - Continue milrinone infusion. - Supplemental oxygen: Room air - ProBNP on admission: 3785 - Cardiology consulted; appreciate recs -Previous TTE revealing EF 15-20%. Canceled repeat TTE given recent's evaluation and discharge. - Continue to monitor #Hyperlipidemia #Hypertension - home medications: Amiodarone 200 mg daily, BiDil 20/37.5 mg every 8 hours, Aldactone 50 mg daily, Lipitor 40 mg daily - current medications: Coreg 25 mg twice daily, Aldactone 50 mg daily, valsartan 40 mg daily - SBP goal <160 and DBP goal <90 while inpatient - continue to monitor #AKIruled out Creatinine 1.6 (baseline 1.4-1.6) Continue to monitor with daily BMP #Hypocalcemia Calcium 8.3 Repleted. Continue to monitor. #Tobacco dependence #Tobacco/Smoking cessation counseling - Counseled patient about the importance of smoking cessation and the possible sequelae as a result of continued tobacco consumption. The patient expresses understanding. -Time: +15 mins #Advanced care planning -Disease education conducted, care plan discussed, diagnoses discussed, prognosis discussed, and patient acknowledges understanding with care plan -Time: +30 min Disposition Plan: Continue medical management Total Time Spent with Patient (Minutes): 45 minutes History Interval history: No acute events overnight. Hospitalist Physical - Constitutional Vitals: Temp Pulse Resp BP Pulse Ox 98.1 F 83 18 101/76 94 10/02/21 11:06 10/02/21 11:07 10/02/21 11:06 10/02/21 11:06 10/02/21 11:07 General appearance: Present: no acute distress, well-nourished - EENT Eyes: Present: PERRL, EOM intact, discharge ENT: hearing intact, clear oral mucosa - Neck Neck: Present: supple, normal ROM - Respiratory Respiratory effort: normal Respiratory: bilateral: diminished - Cardiovascular Rhythm: regular Heart Sounds: Present: S1 & S2 - Extremities Extremities: no ischemia, pulses intact, pulses symmetrical, normal temperature, normal color, Full ROM Peripheral Pulses: within normal limits - Abdominal General gastrointestinal: soft, non-tender, non-distended, normal bowel sounds - Integumentary Integumentary: Present: clear, warm, dry - Psychiatric Psychiatric: appropriate mood/affect, memory intact, cooperative - Neurologic Neurologic: CNII-XII intact, moves all extremities - Allied Health Allied health notes reviewed: nursing HEART Score - HEART Score EKG: Non-specific Age: 45-65 Risk factors: 1-2 risk factors Troponin: Troponin T < 0.010 ng/mL (0.00-0.029) 09/30/21 19:14 Troponin: < normal limit Results - Labs CBC & Chem 7: 10/02/21 07:17 10/02/21 07:17 Labs: Laboratory Last Values WBC 5.8 K/mm3 (4.5-11.0) 10/02/21 07:17 RBC 4.80 M/mm3 (3.65-5.03) 10/02/21 07:17 Hgb 12.2 gm/dl (11.8-15.2) 10/02/21 07:17 Hct 40.0 % (35.5-45.6) 10/02/21 07:17 MCV 83 fl (84-94) L 10/02/21 07:17 MCH 25 pg (28-32) L 10/02/21 07:17 MCHC 31 % (32-34) L 10/02/21 07:17 RDW 20.7 % (13.2-15.2) H 10/02/21 07:17 Plt Count 210 K/mm3 (140-440) 10/02/21 07:17 Lymph % (Auto) 24.3 % (13.4-35.0) 10/02/21 07:17 [place] % (Auto) 9.5 % (0.0-7.3) H 10/02/21 07:17 Eos % (Auto) 4.4 % (0.0-4.3) H 10/02/21 07:17 Baso % (Auto) 0.7 % (0.0-1.8) 10/02/21 07:17 Lymph # (Auto) 1.4 K/mm3 (1.2-5.4) 10/02/21 07:17 [place] # (Auto) 0.6 K/mm3 (0.0-0.8) 10/02/21 07:17 Eos # (Auto) 0.3 K/mm3 (0.0-0.4) 10/02/21 07:17 Baso # (Auto) 0.0 K/mm3 (0.0-0.1) 10/02/21 07:17 Seg Neutrophils % 61.1 % (40.0-70.0) 10/02/21 07:17 Seg Neutrophils # 3.6 K/mm3 (1.8-7.7) 10/02/21 07:17 Sodium 140 mmol/L (137-145) 10/02/21 07:17 Potassium 4.2 mmol/L (3.6-5.0) 10/02/21 07:17 Chloride 103.6 mmol/L (98-107) 10/02/21 07:17 Carbon Dioxide 28 mmol/L (22-30) 10/02/21 07:17 Anion Gap 13 mmol/L 10/02/21 07:17 BUN 21 mg/dL (9-20) H 10/02/21 07:17 Creatinine 1.5 mg/dL (0.8-1.3) H 10/02/21 07:17 Estimated GFR 58 ml/min 10/02/21 07:17 BUN/Creatinine Ratio 14 % 10/02/21 07:17 Glucose 103 mg/dL (75-100) H 10/02/21 07:17 POC Glucose 159 mg/dL (70-105) H 10/01/21 15:54 Calcium 8.2 mg/dL (8.4-10.2) L 10/02/21 07:17 Magnesium 2.20 mg/dL (1.7-2.3) 10/01/21 05:00 Total Bilirubin 1.10 mg/dL (0.1-1.2) 09/30/21 19:14 AST 14 units/L (5-40) 09/30/21 19:14 ALT 13 units/L (7-56) 09/30/21 19:14 Alkaline Phosphatase 88 units/L (35-129) 09/30/21 19:14 Troponin T < 0.010 ng/mL (0.00-0.029) 09/30/21 19:14 NT-Pro-B Natriuret Pep 3785 pg/mL (0-900) H 09/30/21 19:14 Total Protein 6.7 g/dL (6.3-8.2) 09/30/21 19:14 Albumin 3.9 g/dL (3.9-5) 09/30/21 19:14 Albumin/Globulin Ratio 1.4 % 09/30/21 19:14 [place]/IV: Voiding Method Urinal Active Medications - Current Medications Current Medications: Generic Name Dose Route Start Last Admin Trade Name Freq PRN Reason Stop Dose Admin Acetaminophen 650 mg 10/01/21 00:01 Acetaminophen 325 Mg Tab PO Q4H PRN Pain MILD(1-3)/Fever >100.5/MCFADDEN Albuterol 2.5 mg 10/01/21 00:01 Albuterol 2.5 Mg/3 Ml Nebu IH Q3HRT PRN Shortness Of Breath Albuterol/Ipratropium 1 ampul 10/01/21 08:00 10/02/21 08:23 Ipratropium/Albuterol Sulfate 3 Ml Ampul.Neb IH 1 ampul TIDRT GRADY Administration Amiodarone HCl 200 mg 10/01/21 10:00 10/02/21 10:18 Amiodarone 200 Mg Tab PO 200 mg BID GRADY Administration Apixaban 5 mg 10/01/21 10:00 10/02/21 10:18 Apixaban 5 Mg Tab PO 5 mg Q12HR GRADY Administration Calcium Carbonate/Glycine 1,250 mg 10/01/21 14:00 10/02/21 10:18 Calcium Carbonate 1250 Mg Tab PO 1,250 mg QDAY GRADY Administration Carvedilol 25 mg 10/01/21 10:00 10/02/21 10:19 Carvedilol 25 Mg Tab PO Not Given BID GRADY Furosemide 40 mg 10/01/21 08:00 10/02/21 06:19 Furosemide 40 Mg/4 Ml Inj IV 40 mg 0600,1800 GRADY Administration Milrinone Lactate/Dextrose 20 mg in 100 mls @ 7.14 mls/hr 10/01/21 11:00 10/02/21 10:16 Milrinone-D5w 20 Mg/100 Ml IV 10/04/21 10:59 0.25 mcg/kg/min DIRECT GRADY 7.14 mls/hr Administration Protocol 0.25 MCG/KG/MIN Isosorbide Dinitrate/Hydralazine 1 each 10/01/21 06:00 10/02/21 13:36 Isosorb Dinit/Hydralazine 20-37.5mg Tab PO 1 each Q8HR GRADY Administration Metolazone 5 mg 10/01/21 11:00 10/02/21 10:18 Metolazone 5 Mg Tab PO 5 mg QDAY GRADY Administration Morphine Sulfate 2 mg 10/01/21 00:01 10/02/21 10:24 Morphine 2 Mg/1 Ml Inj IV 2 mg Q4H PRN Administration Pain, Moderate (4-6) Morphine Sulfate 4 mg 10/01/21 00:01 10/01/21 05:45 Morphine 4 Mg/1 Ml Inj IV 4 mg Q4H PRN Administration Pain , Severe (7-10) Ondansetron HCl 4 mg 10/01/21 00:01 Ondansetron 4 Mg/2 Ml Inj IV Q8H PRN Nausea And Vomiting Pantoprazole Sodium 40 mg 10/01/21 10:00 10/02/21 10:19 Pantoprazole 40 Mg Tab PO 40 mg DAILY GRADY Administration Sodium Chloride 10 ml 10/01/21 10:00 10/02/21 10:19 Sodium Chloride 0.9% 10 Ml Flush Syringe IV 10 ml BID GRADY Administration Sodium Chloride 10 ml 10/01/21 00:01 Sodium Chloride 0.9% 10 Ml Flush Syringe IV PRN PRN LINE FLUSH Spironolactone 50 mg 10/01/21 10:00 10/02/21 10:18 Spironolactone 50 Mg Tab PO 50 mg QDAY GRADY Administration Sucralfate 1 gm 10/01/21 07:30 10/02/21 13:36 Sucralfate 1 Gm Tab PO 1 gm ACHS GRADY Administration Valsartan 40 mg 10/01/21 10:00 10/02/21 10:18 Valsartan 40 Mg Tab PO 40 mg DAILY GRADY Administration
[2021-10-03 05:48] LABS: Calcium 8.8 mg/dL (8.4-10.2)
[2021-10-03] MEDS: FUROSEMIDE 40 MG/4 ML INJ IV SCH (05:49)
[2021-10-03] MEDS: ISOSORB DINIT/HYDRALAZINE 20-37.5MG TAB PO SCH (05:50)
[2021-10-03 05:52] LABS: Basophils # (Auto) 0.1 K/mm3 (0.0-0.1); Basophils % (Auto) 0.7 % (0.0-1.8); Eosinophils # (Auto) 0.3 K/mm3 (0.0-0.4); Eosinophils % (Auto) 3.8 % (0.0-4.3); Hematocrit 39.8 % (35.5-45.6); Hemoglobin 12.6 gm/dl (11.8-15.2); Lymphocytes # (Auto) 1.5 K/mm3 (1.2-5.4); Lymphocytes % (Auto) 21.4 % (13.4-35.0); Mean Corpuscular HGB Conc 32 % (32-34); Mean Corpuscular Volume 82 fl (84-94); Monocytes % (Auto) 13.2 % (0.0-7.3); Platelet Count 219 K/mm3 (140-440); Red Blood Count 4.87 M/mm3 (3.65-5.03)
[2021-10-03 06:06] LABS: Red Cell Distribution Width 20.1 % (13.2-15.2)
[2021-10-03] MEDS ORDERED: ARFORMOTEROL 15 MCG/2 ML NEBU IH SCH (08:00)
--- NOTE | 2021-10-03 08:34 | Discharge Summary ---
Providers - Providers Date of Admission: 10/01/21 01:10 Attending physician: ESTHELA MAGANA 10/01/21 00:01 Consult to Physician [CONS] Routine Comment: Consulting Provider: AVINASH MATAMOROS Physician Instructions: Reason For Exam: chf Primary care physician: SUNNY DAVIS Hospitalization Condition: Fair Disposition: 30 STILL A PATIENT Exam - Constitutional Vitals: Temp Pulse Resp BP Pulse Ox 98.5 F 90 20 118/85 93 10/03/21 04:10 10/03/21 04:10 10/03/21 04:10 10/03/21 04:10 10/03/21 04:10 Plan Follow up with: SUNNY DAVIS MD [Primary Care Provider] - 3-5 Days
[2021-10-03 08:41] VITALS: BP 95/62
[2021-10-03] MEDS: SUCRALFATE 1 GM TAB PO SCH (08:58)
[2021-10-03] MEDS: IPRATROPIUM/ALBUTEROL SULFATE 3 ML AMPUL.NEB IH SCH (09:18)
== END 2021-10-03 09:25 | disposition home or self-care (01) | DRG 291 ==
LOC: ED 18:38 → 4A 10-01 01:10
PROVIDERS: ADMIT Hospitalist; ATTEND Internal Medicine
DX: I13.0 Hypertensive heart and chronic kidney disease with heart failure and stage 1 through stage 4 chronic kidney disease, or unspecified chronic kidney disease (principal); I50.23 Acute on chronic systolic (congestive) heart failure; N18.9 Chronic kidney disease, unspecified; J44.9 Chronic obstructive pulmonary disease, unspecified; K21.9 Gastro-esophageal reflux disease without esophagitis; E78.5 Hyperlipidemia, unspecified; I48.0 Paroxysmal atrial fibrillation; I48.92 Unspecified atrial flutter; I25.10 Atherosclerotic heart disease of native coronary artery without angina pectoris; I42.0 Dilated cardiomyopathy; E83.51 Hypocalcemia; F17.200 Nicotine dependence, unspecified, uncomplicated; M19.90 Unspecified osteoarthritis, unspecified site; Z79.899 Other long term (current) drug therapy; Z95.810 Presence of automatic (implantable) cardiac defibrillator; Z91.14 Patient's other noncompliance with medication regimen; I25.2 Old myocardial infarction; Z79.01 Long term (current) use of anticoagulants; Z82.49 Family history of ischemic heart disease and other diseases of the circulatory system; Z71.6 Tobacco abuse counseling
CPT/HCPCS: 36415; 71045; 80048; 80053; 82962; 83735; 83880; 84484; 85025; 93005; 94640; 94760; G0378; J1940; J2260; J2270

== ENCOUNTER 2021-11-15 10:39 | Emergency (ER) | payer MEDICAID ==
[2021-11-15] MEDS ORDERED: ASPIRIN 325 MG TAB PO ONE (11:19)
--- NOTE | 2021-11-15 12:09 | XRay Report ---
CHEST 2 VIEWS INDICATION / CLINICAL INFORMATION: sob. COMPARISON: 09/30/2021 FINDINGS: SUPPORT DEVICES: Stable position of cardiac ICD. HEART / MEDIASTINUM: Stable cardiomegaly. LUNGS / PLEURA: No significant pulmonary or pleural abnormality. No pneumothorax. ADDITIONAL FINDINGS: No significant additional findings. Signer Name: Chance Olvera MD Signed: 11/15/2021 12:01 PM Workstation Name: [id number]
[2021-11-15 12:15] LABS: Basophils % (Auto) 0.8 % (0.0-1.8); Eosinophils # (Auto) 0.2 K/mm3 (0.0-0.4); Eosinophils % (Auto) 4.2 % (0.0-4.3); Hematocrit 40.7 % (35.5-45.6); Hemoglobin 12.8 gm/dl (11.8-15.2); Lymphocytes # (Auto) 1.2 K/mm3 (1.2-5.4); Lymphocytes % (Auto) 24.6 % (13.4-35.0); Mean Corpuscular HGB Conc 31 % (32-34); Mean Corpuscular Volume 85 fl (84-94); Monocytes # (Auto) 0.6 K/mm3 (0.0-0.8); Monocytes % (Auto) 12.1 % (0.0-7.3); Platelet Count 172 K/mm3 (140-440); Red Blood Count 4.79 M/mm3 (3.65-5.03)
[2021-11-15 12:16] LABS: Red Cell Distribution Width 22.4 % (13.2-15.2)
[2021-11-15 12:27] LABS: INR 0.9 (0.87-1.13)
[2021-11-15 12:29] LABS: Partial Thromboplastin Time 29.2 Sec. (24.2-36.6)
[2021-11-15 12:33] LABS: Alanine Aminotransferase 14 units/L (7-56); Albumin 3.6 g/dL (3.9-5); BUN/Creatinine Ratio 9; Blood Urea Nitrogen 14 mg/dL (9-20); Calcium 8.7 mg/dL (8.4-10.2); Hemolysis Index 19
[2021-11-15 12:40] VITALS: BP 157/108
[2021-11-15] MEDS ORDERED: FUROSEMIDE 40 MG/4 ML INJ IV ONE (17:49)
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
--- NOTE | 2021-11-16 18:53 | Electrocardiograph Report ---
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
== END 2021-11-15 20:40 | disposition home or self-care (01) ==
LOC: ED 10:39
DX: I11.0 Hypertensive heart disease with heart failure (principal); I50.9 Heart failure, unspecified; I21.9 Acute myocardial infarction, unspecified; K21.9 Gastro-esophageal reflux disease without esophagitis; J44.1 Chronic obstructive pulmonary disease with (acute) exacerbation; M19.90 Unspecified osteoarthritis, unspecified site; Z98.890 Other specified postprocedural states; F17.200 Nicotine dependence, unspecified, uncomplicated; Z79.899 Other long term (current) drug therapy
CPT/HCPCS: 36415; 71046; 80053; 83880; 84484; 85025; 85379; 85610; 85730; 93005; 96374; 99284; J1940